=== PATIENT | female | born 1975 | race Caucasian/White ===

== ENCOUNTER 2022-04-03 00:27 | Day surgery (SDC) | payer OTHER, SELFPAY ==
[2022-02-21 13:03] VITALS: BMI 26.4
--- NOTE | 2022-04-03 06:40 | PM.HPGS ---
History of Present Illness History of Present Illness Consent: Risks, benefits, and alternatives have been discussed and questions answered. Patient agrees to proceed with procedure. Chief complaint: positive cologuard Narrative: Nedra Banks is a 46 year old female Referred for colon cancer screening. She performed a Cologuard test which was positive. Review of Systems Review of Systems: All systems reviewed & are unremarkable except as noted in HPI and below PMFSH Social History Social History Smoking status: Never smoker Alcohol intake: never Substance use: never Substance use type: does not use Living arrangements: with family Spiritual care concerns: No Meds Home Medications and Allergies Home Medications Medication Instructions Recorded Confirmed Type biotin 100 mg PO DAILY 02/21/22 03/17/22 History calcium carbonate 600 mg-vitamin 1 tablet PO BID 02/21/22 03/17/22 History D3 10 mcg (400 unit) tablet (Calcium 600 + D(3)) cyanocobalamin (vitamin B-12) 500 500 mcg sublingual BID 02/21/22 03/17/22 History mcg sublingual tablet levothyroxine 137 mcg tablet 137 mcg PO DAILY 02/21/22 03/17/22 History (Synthroid) magnesium 250 mg tablet 250 mg PO BID 02/21/22 03/17/22 History pediatric multivitamin 1 tablet PO BID 02/21/22 03/17/22 History Allergies Allergy/AdvReac Type Severity Reaction Status Date / Time No Known Allergies Allergy Mild Unverified 03/17/22 14:52 Exam Const: General: alert Orientation/consciousness: patient oriented x3 Resp: Auscultation: clear to auscultation bilaterally Cardio: Rhythm: regular rhythm GI: GI Palp: Yes Soft to palpation and No Tenderness to palpation present (GI) Neuro: General: patient oriented x3 Assessment and Plan Assessment and plan (1) Colon cancer screening: Code(s): Z12.11 - Encounter for screening for malignant neoplasm of colon Status: Acute Assessment and Plan: Colonoscopy with possible biopsy or polypectomy or cautery or injection of substances.
[2022-04-03 07:28] VITALS: BP 121/70; PULSE 78; RESP 18; TEMP 36.2; O2SAT 99; BMI 24.7
[2022-04-03] MEDS: LACTATED RINGERS 1,000 ML 150 ML IV CONT (07:39)
--- NOTE | 2022-04-03 08:12 | WPDANESEPPF ---
Anes - Initial Pre Proc Eval Procedure: Operation Date: 04/03/22 08:30 Proposed Procedures p Colonoscopy - Silvino Skinner MD Date/Time: 04/03/22 08:12 Surgeon: Silvino Skinner MD Pre Op Diagnosis: positive cologuard Patient Data Age: 46 Gender: F Height: 1.57 m Weight: 61.3 kg Last Vital Signs Temp 97.1 F L 04/03/22 07:28 Pulse 78 04/03/22 07:28 Resp 18 04/03/22 07:28 BP 121/70 04/03/22 07:28 Pulse Ox 99 04/03/22 07:28 O2 Del Method Room Air 04/03/22 07:28 Allergies Allergy/AdvReac Type Severity Reaction Status Date / Time No Known Allergies Allergy Mild Unverified 03/17/22 14:52 Home Medications Medication Instructions Recorded Confirmed Type biotin 100 mg PO DAILY 02/21/22 03/17/22 History calcium carbonate 600 mg-vitamin 1 tablet PO BID 02/21/22 03/17/22 History D3 10 mcg (400 unit) tablet (Calcium 600 + D(3)) cyanocobalamin (vitamin B-12) 500 500 mcg sublingual BID 02/21/22 03/17/22 History mcg sublingual tablet levothyroxine 137 mcg tablet 137 mcg PO DAILY 02/21/22 03/17/22 History (Synthroid) magnesium 250 mg tablet 250 mg PO BID 02/21/22 03/17/22 History pediatric multivitamin 1 tablet PO BID 02/21/22 03/17/22 History Patient hx anesthesia problems: none Family hx anesthesia problems: none Results Review: All pre-operative results and documents have been reviewed as part of the pre-operative evaluation. [facility] Social History Social History Smoking status: Never smoker Alcohol intake: never Substance use: never Substance use type: does not use Living arrangements: with family Spiritual care concerns: No Anes - Eval Final PreProcedure Day of Procedure 04/03/22 08:12 Patient weight: normal Heart: regular rate and rhythm Lungs: clear to auscultation Airway: Mallampati scale class II Neurological: alert and oriented Last oral intake: >/= 8 hours ASA classification: III Emergent: no Anesthetic plan: proceed Anesthesia type and monitoring: general GIVS and standard monitoring Results Review: All pre-operative results and documents have been reviewed as part of the pre-operative evaluation. Informed Consent: The patient's anesthetic plan and its attendant risks and benefits were discussed with the patient/family/POA. Questions were solicited and answers provided to the satisfaction of the patient/family/POA.
[2022-04-03 08:41] VITALS: BP 100/53; PULSE 65; RESP 21; O2SAT 98
[2022-04-03 08:51] VITALS: BP 114/66; PULSE 71; RESP 21; O2SAT 100
[2022-04-03 09:01] VITALS: BP 104/65; PULSE 69; RESP 22; O2SAT 100
== END 2022-04-03 09:06 | disposition home or self-care (01) ==
PROVIDERS: PCP Family Medicine; Visit Provider Internal Medicine Gastroenterology
PROC: 0DJD8ZZ Inspection of Lower Intestinal Tract, Via Natural or Artificial Opening Endoscopic (ICD-10-PCS; CPT 45378; principal; 2022-04-03 08:30)
DX: Z12.11 Encounter for screening for malignant neoplasm of colon (principal); K57.30 Diverticulosis of large intestine without perforation or abscess without bleeding; R19.5 Other fecal abnormalities
CPT/HCPCS: 45378; J2704; J7120

== ENCOUNTER 2023-02-04 08:58 | Outpatient (CLI) | payer OTHER, SELFPAY ==
--- NOTE | 2023-02-04 11:00 | NEURO_ITS ---
Impression: # Complains of lower neck pain and numbness of hand. # Mild Carpal Tunnel Syndrome bilaterally. # Normal needle/Needle/EMG including proximal muscles as well. # Clinical correlation recommended. Nerve Conduction Studies Anti Sensory Summary Table Stim Site NR Peak (ms) P-T Amp (?V) Site1 Site2 Delta-P (ms) Dist (cm) James (m/s) Left Median Anti Sensory (2-3nd Digit) Wrist 3.5 54.9 Wrist 2-3nd Digit 3.5 14.0 40 Wrist 3.6 65.3 Wrist 2-3nd Digit 3.5 14.0 40 Right Median Anti Sensory (2-3nd Digit) Wrist 3.7 54.9 Wrist 2-3nd Digit 3.7 14.0 38 Wrist 3.8 30.5 Wrist 2-3nd Digit 3.7 14.0 38 Left Radial Anti Sensory (Base 1st Digit) Wrist 2.0 69.8 Wrist Base 1st Digit 2.0 0.0 Right Radial Anti Sensory (Base 1st Digit) Wrist 2.3 31.9 Wrist Base 1st Digit 2.3 0.0 Left Ulnar Anti Sensory (5th Digit) Wrist 2.8 63.4 Wrist 5th Digit 2.8 14.0 50 Right Ulnar Anti Sensory (5th Digit) Wrist 2.7 57.6 Wrist 5th Digit 2.7 14.0 52 Motor Summary Table Stim Site NR Onset (ms) O-P Amp (mV) Site1 Site2 Delta-0 (ms) Dist (cm) James (m/s) Left Median Motor (Abd Poll Brev) Wrist 4.1 0.5 Elbow Wrist 4.7 28.0 60 Elbow 8.8 3.0 Right Median Motor (Abd Poll Brev) Wrist 4.5 1.6 Elbow Wrist 4.8 28.0 58 Elbow 9.3 4.2 Left Ulnar Motor (Abd Dig Minimi) Wrist 2.8 3.9 A Elbow Wrist 4.5 28.0 62 A Elbow 7.3 4.1 Right Ulnar Motor (Abd Dig Minimi) Wrist 2.9 9.0 A Elbow Wrist 4.8 28.0 58 A Elbow 7.7 8.0 F Wave Studies NR F-Lat (ms) L-R F-Lat (ms) Left Median (Mrkrs) (Abd Poll Brev) 29.24 0.53 Right Median (Mrkrs) (Abd Poll Brev) 28.71 0.53 Left Ulnar (Mrkrs) (Abd Dig Min) 27.97 0.68 Right Ulnar (Mrkrs) (Abd Dig Min) 27.29 0.68 EMG Side Muscle Nerve Root Ins Act Fibs Amp Dur Recrt Comment Right 1stDorInt Ulnar C8-T1 Nml Nml Nml Nml Nml Right Ext Indicis Radial (Post Int) C7-8 Nml Nml Nml Nml Nml Right Ext Digitorum Radial (Post Int) C7-8 Nml Nml Nml Nml Nml Right BrachioRad Radial C5-6 Nml Nml Nml Nml Nml Right PronatorTeres Median C6-7 Nml Nml Nml Nml Nml Right Abd Poll Brev Median C8-T1 Nml Nml Nml Nml Nml Left 1stDorInt Ulnar C8-T1 Nml Nml Nml Nml Nml Left Ext Indicis Radial (Post Int) C7-8 Nml Nml Nml Nml Nml Left Ext Digitorum Radial (Post Int) C7-8 Nml Nml Nml Nml Nml Left BrachioRad Radial C5-6 Nml Nml Nml Nml Nml Left PronatorTeres Median C6-7 Nml Nml Nml Nml Nml Left Abd Poll Brev Median C8-T1 Nml Nml Nml Nml Nml Right ABD Dig Min Ulnar C8-T1 Nml Nml Nml Nml Nml Right Biceps Musculocut C5-6 Nml Nml Nml Nml Nml Right Triceps Radial C6-7-8 Nml Nml Nml Nml Nml Right Deltoid Axillary C5-6 Nml Nml Nml Nml Nml Left ABD Dig Min Ulnar C8-T1 Nml Nml Nml Nml Nml Left Biceps Musculocut C5-6 Nml Nml Nml Nml Nml Left Triceps Radial C6-7-8 Nml Nml Nml Nml Nml Left Deltoid Axillary C5-6 Nml Nml Nml Nml Nml MTDD
== END 2023-02-04 08:59 | disposition home or self-care (01) ==
PROVIDERS: PCP Family Medicine; Visit Provider Family Medicine
DX: G56.03 Carpal tunnel syndrome, bilateral upper limbs (principal); M54.2 Cervicalgia
CPT/HCPCS: 95886; 95911

== ENCOUNTER → 2023-02-05 07:55 | Outpatient (CLI) | payer OTHER, SELFPAY ==
--- NOTE | ~2023-02-05 | XR_ITS ---
Cervical Spine: AP, lateral, open-mouth views Clinical History: Paresthesia Findings: The normal lordotic curve is maintained. The vertebral bodies and posterior elements appea r intact. The intervertebral disc spaces are well maintained. Pre-vertebral soft tissues are unremar kable. Impression: No significant abnormality is seen. Reviewed, dictated and finalized at [facility]. Impression: No significant abnormality is seen.
== END ==
PROVIDERS: PCP Family Medicine; Visit Provider Family Medicine
DX: M54.12 Radiculopathy, cervical region (principal)
CPT/HCPCS: 72040

== ENCOUNTER 2024-03-18 11:52 | Emergency (ER) | payer OTHER, SELFPAY ==
[2024-03-18 12:02] VITALS: BP 121/90; PULSE 68; RESP 16; TEMP 36.5; O2SAT 100
--- NOTE | 2024-03-18 12:06 | ED.ABDPAIN ---
HPI - Abdominal Pain General Chief Complaint: Abdominal Pain Stated Complaint: abdominal pain Source: patient and RN notes reviewed Mode of arrival: ambulatory Limitations: no limitations History of Present Illness HPI narrative: 48 y/o female presented for c/o abdominal pain, onset 9am. Pain is described as cramping in a wishbone pattern starting in epigastric area. Reports mild chest tightness. Also states she had dry heaves and felt clammy which is now resolved. Took 3 Tums without relief. LBM yesterday, normal. Denies fever, diarrhea, blood in stool, urinary symptoms, heart racing, dizziness. Last po intake was a protein shake this morning. Hx bariatric surgery. Endorses exposure to strep. Related Data Home Medications Medication Instructions Recorded Confirmed calcium 600 mg (as 1 tablet PO BID 02/21/22 03/18/24 carbonate)-vitamin D3 10 mcg (400 unit) tablet (Calcium 600 + D(3)) cyanocobalamin (vitamin B-12) 500 500 mcg sublingual BID 02/21/22 03/18/24 mcg sublingual tablet levothyroxine 137 mcg tablet 137 mcg PO DAILY 02/21/22 03/18/24 (Synthroid) Allergies Allergy/AdvReac Type Severity Reaction Status Date / Time No Known Allergies Allergy Mild Unverified 03/17/22 14:52 Review of Systems Review of Systems: CONSTITUTIONAL: Denies body aches, fever, chills ENT: Denies rhinorrhea, congestion CARDIOVASCULAR: Denies chest pain, palpitations, or edema. RESPIRATORY: Denies cough or dyspnea. GASTROINTESTINAL: Endorses abdominal pain, nausea, Denies vomiting, diarrhea, hematochezia, melena, hematemesis GENITOURINARY: Denies dysuria, hematuria, or CVA tenderness. MUSCULOSKELETAL: Denies back pain, joint pain, or myalgia. NEUROLOGIC: Denies headache All systems reviewed & are unremarkable except as noted in HPI and below PMFSH Surgical History Surgical History (Updated 03/18/24 @ 12:22 by Saumya Page APRN) H/O bariatric surgery Social History Social History Smoking status: Never smoker Alcohol intake: never Substance use: never Substance use type: does not use Living arrangements: with family Spiritual care concerns: No Comments At time of signature, I have reviewed and agree with nursing past medical, surgical, social and family history unless otherwise noted. Please see nursing chart for further information. There is no relevant family history pertinent to the presenting complaint Exam Narrative: GENERAL: mildly ill-appearing, appears in pain, no acute distress. EYES: EOMI. Conjunctivae normal. ENT: Mucous membranes pink and moist. CHEST: No respiratory distress. Clear to auscultation. HEART: Regular rate and rhythm. No murmur appreciated. Normal peripheral pulses. ABDOMEN: abd soft, nondistended, normal active bowel sounds. Tender abdomen, generalized. Guarding abdomen. No rebound tenderness or asymmetry EXTREMITIES: Normal range of motion. No edema. SKIN: Warm, dry, no rash. Capillary refill normal. Normal skin turgor. NEURO: No focal deficits. Alert and oriented x3. Course Course Emergency Course: Patient is aware of diagnosis, understands and agrees to treatment plan. Anticipatory guidance given. Patient agrees to follow-up as directed and is aware of reasons to seek care at the emergency department. Portions of this record may have been created with voice recognition software Level of Care: Express Care Visit Vital Signs Vital signs: Vital Signs Temperature 97.7 F 03/18/24 12:02 Pulse Rate 68 03/18/24 12:02 Respiratory Rate 16 03/18/24 12:02 Blood Pressure 121/90 03/18/24 12:02 Pulse Oximetry 100 03/18/24 12:02 Temperature 97.7 F 03/18/24 12:02 Pulse Rate 68 03/18/24 12:02 Respiratory Rate 16 03/18/24 12:02 Blood Pressure 121/90 03/18/24 12:02 Pulse Oximetry 100 03/18/24 12:02 Transfer Transfered to: [facility]: Other (private
== END 2024-03-18 12:23 | disposition short-term general hospital (02) ==
PROVIDERS: Emergency Provider Nurse Practitioner Family; PCP Physician Assistant
DX: R10.9 Unspecified abdominal pain (principal)
CPT/HCPCS: 99212; G0463

== ENCOUNTER 2024-03-18 12:41 | Observation (INO) | payer OTHER, MEDICAID, SELFPAY ==
[2024-03-18] VITALS (7 sets, daily range): BP systolic 135–154; BP diastolic 77–87; PULSE 52–73; RESP 12–16; TEMP 36.7; O2SAT 98–100; BMI 25.8
--- NOTE | ~2024-03-18 | CT_ITS ---
CLINICAL INDICATION: Epigastric pain with nausea and vomiting. COMPARISON: None. TECHNIQUE: An enhanced CT of the abdomen and pelvis was performed utilizing multislice spiral [employer] ue reconstructed at 5 mm slice thickness. Coronal and sagittal reconstructions were performed. This CT examination was performed utilizing dose reduction techniques. DLP: 301 mGy-cm FINDINGS/OBSERVATIONS: Visualized lower thorax:The bilateral lung bases are clear. The heart is of normal size, without pericardial effusion. Liver: The liver is not enlarged measuring 18 cm in longitudinal dimension. Trace periductal edema, a nonspecific finding. Gallbladder and biliary system: The gallbladder is minimally distended, without significant surroundi ng inflammatory change. However, the lack of intra-abdominal fat, precludes adequate evaluation. The common bile duct is dilated from 7.5 to 9.7 mm along its course. Prominence of the main pancreatic duct is also noted (to just over 3 mm), without jameel dilatation. Pancreas: Prominence of the main pancreatic duct is also noted (to just over 3 mm), without jameel dil atation. No discrete masses are identified. Spleen: The spleen is not enlarged and demonstrates homogeneous enhancement. Kidneys: Bilateral kidneys enhance symmetrically. Adrenal glands: Unremarkable Gastrointestinal tract: Postoperative change within the upper abdomen, the left of midline, consisten t with patients history of gastric bypass. Appendix:The air-filled appendix is of normal caliber (at least 3, image 109). Vasculature: Unremarkable Lymph nodes: No morphologically suspicious or pathologically enlarged lymph nodes within the retroper itoneum. Pelvic structures:Intrauterine device, in position. The uterus is anteverted and anteflexed and other kaur unremarkable. The bladder is decompressed, limiting its evaluation. The left ovary is asymmetrically larger than the right, a nonspecific finding. Multiple phleboliths are identified within the pelvis. Body wall and musculoskeletal: Small fat-containing umbilical hernia. No significant degenerative disease is identified within the lumbosacral or lower thoracic spines. No lytic or blastic lesions are identified within the visualized osseous structures. IMPRESSION: The gallbladder is minimally distended, without calcified stones. The common bile duct is also distended anywhere from 7 to 9 mm. Prominence of the main pancreatic duct is also present, without jameel dilatation. Given the lack of intra-abdominal fat, surrounding inflammatory change evaluation is limited. No discrete mass is appreciated. No obstructing stones are noted. Reviewed, dictated and finalized at location A. IMPRESSION: The gallbladder is minimally distended, without calcified stones. The common bile duct is also distended anywhere from 7 to 9 mm. Prominence of the main pancreatic duct is also present, without jameel dilatatio n. Given the lack of intra-abdominal fat, surrounding inflammatory change evaluati on is limited. No discrete mass is appreciated. No obstructing stones are noted.
--- NOTE | ~2024-03-18 | XR_ITS ---
EXAMINATION: XR chest 2V DATE: 03/18/2024 14:41 INDICATION: Upper abdominal pain radiating to the chest. TECHNIQUE: Frontal and lateral views of the chest were obtained. COMPARISON: Chest single view 10/28/2023 FINDINGS: There is no pneumonia, pleural effusion, or pneumothorax. The heart size is normal. There a re surgical clips in the neck. IMPRESSION: 1. No acute cardiopulmonary disease. Reviewed, dictated and finalized at location A.
--- NOTE | ~2024-03-18 | US_ITS ---
COMPLETE ABDOMINAL ULTRASOUND Ordering provider: Janay Birmingham MD History: . rule out cholecystitis . Comparison: None. FINDINGS: LIVER: Normal size and echotexture. No focal hepatic lesions or perihepatic fluid collections are mario ntified. Portal vein flow is normal. GALLBLADDER: Unremarkable. No evidence for stones, sludge, gallbladder wall thickening or pericholecy stic fluid collections. A positive sonographic Sims's sign was noted. BILIARY DUCTS: No evidence for intra or extrahepatic biliary dilation. Common bile duct measures 7.9 mm in diameter which is within normal limits. PANCREAS: Normal echotexture and size. IMPRESSION: Positive Sims's sign. Clinical correlation advised. Otherwise, Unremarkable right upper quadrant ul trasound of the abdomen. Reviewed, dictated and finalized at location A. IMPRESSION: Positive Sims's sign. Clinical correlation advised. Otherwise, Unremarkable r ight upper quadrant ultrasound of the abdomen.
--- NOTE | 2024-03-18 12:48 | ED.ABDPAIN ---
HPI - Abdominal Pain General Chief Complaint: Abdominal Pain Stated Complaint: abd pain Time Seen by Provider: 03/18/24 12:48 Source: patient History of Present Illness HPI narrative: 48 years old white female came to the ED by private car complaining of epigastric cramps started 9:00 a.m. which is 3-1/2 hours ago. Associated with nausea and dry heaving. Worse with sitting, nothing make it better. History of gastric bypass 2020. Hypothyroidism. She denies any fever or chills, constipation diarrhea or urinary symptoms, patient have IUD. Related Data Home Medications Medication Instructions Recorded Confirmed calcium 600 mg (as 1 tablet PO BID 02/21/22 03/18/24 carbonate)-vitamin D3 10 mcg (400 unit) tablet (Calcium 600 + D(3)) cyanocobalamin (vitamin B-12) 500 500 mcg sublingual BID 02/21/22 03/18/24 mcg sublingual tablet levothyroxine 137 mcg tablet 137 mcg PO DAILY 02/21/22 03/18/24 (Synthroid) Allergies Allergy/AdvReac Type Severity Reaction Status Date / Time No Known Allergies Allergy Mild Unverified 03/17/22 14:52 Review of Systems Review of Systems: All systems reviewed & are unremarkable except as noted in HPI and below PMFSH Surgical History Surgical History H/O bariatric surgery Social History Social History Smoking status: Never smoker Alcohol intake: never Substance use: never Substance use type: does not use Living arrangements: with family Spiritual care concerns: No Exam Narrative: General appearance: Well-developed, well-nourished Skin: Normal color Head: Normocephalic, nontraumatic Eyes: Clear conjunctiva ENT: Oropharynx normal, ears normal, nose normal Neck: Supple, nontender Chest and respiratory: Airway patent, no respiratory distress, no accessory muscle use Heart: Regular rate/rhythm Abdomen: Soft, Diffuse abdominal tenderness mainly epigastric area and left lower quadrant Vascular: Normal peripheral pulses, normal capillary refill. Musculoskeletal: Normal range of motion, nontender back Neurologic: Alert and oriented ?3, PERIODONTAL ASSISTANT is normal as tested, no gross motor deficit Course Vital Signs Vital signs: Vital Signs Temperature 36.7 C 03/18/24 12:44 Pulse Rate 73 03/18/24 12:44 Respiratory Rate 14 03/18/24 12:44 Blood Pressure 138/82 03/18/24 12:44 Pulse Oximetry 100 03/18/24 12:44 Temperature 36.7 C 03/18/24 18:07 Pulse Rate 58 L 03/18/24 18:07 Respiratory Rate 14 03/18/24 18:07 Blood Pressure 135/86 03/18/24 18:07 Pulse Oximetry 100 03/18/24 18:07 MDM - Abdominal Pain MDM Narrative Medical decision making narrative: patient came to the ED with epigastric and upper abdominal pain Vital signs are stable Physical examination showed diffuse tenderness all over the abdomen mainly epigastric. Differential diagnosis include pancreatitis, gastritis, B esophagitis, cholecystitis, constipation, diverticulitis, colitis Blood workup today showed WBC of 10.8, normal total bilirubin, normal liver enzymes, normal troponin, normal lipase, Urinalysis showed no evidence of urinary tract infection Chest x-ray showed no acute abnormalities CT abdomen and pelvis with IV contrast showed minimally distended gallbladder, distended common bile duct 7-9 mm Given the lack of intra-abdominal fat surrounding inflammatory change evaluation is limited. Patient still in pain, 03/17 on arrival, currently /10, 0.5 mg of Dilaudid IV ordered. GALLBLADDER ULTRASOUND SHOWED POSITIVE ULRICH SIGN OTHERWISE NO ACUTE ABNORMALITIES. PATIENT STILL IN PAIN,
--- NOTE | 2024-03-18 12:49 | ECG_ITS ---
Test Date: 2024-03-18 13:14:27 Measurements Intervals [place] Rate: 53 P: 12 NE: 147 QRS: 10 QRSD: 82 T: 16 QT: 419 QTc: 395 Interpretive Statements SINUS BRADYCARDIA No previous ECG available for comparison Electronically Signed On 03-19-2024 08:21:04 CDT by Cristiane Morrison M.D.
[2024-03-18] MEDS: ONDANSETRON INJ 4 MG/2 ML VIAL IV PUSH ×3 (13:38→21:22)
[2024-03-18] MEDS: MORPHINE SULFATE (*CRX) 4 MG/ML INJ IV PUSH (13:39)
[2024-03-18] MEDS: SODIUM CHLORIDE 0.9% IV 1,000 ML 999 ML IV CONT (13:41)
[2024-03-18 14:02] LABS: Basophils Percent Auto 0.4 % (0.2-1.2); Eosinophils Percent Auto 0.1 % (0-4.4); Hematocrit 40.8 % (37.0-47.0); Hemoglobin 13.9 g/dL (12.0-15.0); Immature Granulocyte Absolute 0.04 K/mm3 (0.00-0.031); Immature Granulocyte Percent A 0.4 % (0-0.5); Lymphocytes Absolute Auto 1.34 K/mm3 (0.9-3.2); Lymphocytes Percent Auto 12.4 % (18.3-44.2); Mean Corpuscular HGB Conc 34.1 g/dl (32-36); Mean Corpuscular Hemoglobin 30.7 pg (26-34); Mean Corpuscular Volume 90.1 fl (80-100); Mean Platelet Volume 9.2 fl (7.4-10.4); Monocytes Absolute Auto 0.5 K/mm3 (0.1-0.6); Monocytes Percent Auto 4.4 % (2.6-8.5); Neutrophils Absolute Auto 8.9 K/mm3 (1.3-6.7); Neutrophils Percent Auto 82.3 % (45.5-73.1); Platelet Count Result 279 k/mm3 (150-375); Red Blood Count 4.53 M/mm3 (4.2-5.4); Red Cell Distribution Width 12.2 % (11.5-14.5); White Blood Count 10.8 K/mm3 (4.5-10.0)
[2024-03-18 14:20] LABS: BEDSIDEPREGUCG Negative (Negative)
[2024-03-18 14:24] LABS: Add Urine Microscopic? NO; Appearance Urine Clear (Clear); Bilirubin Urine Negative (Negative); Blood Urine Negative (Negative); Color Urine Yellow (Yellow); Glucose Urine UA Negative (Negative); Ketones Urine Trace mg/dL (Negative); Leukocyte Esterase Ur Negative LEU/UL (Negative); Nitrate Urine Negative (Negative); Protein Urine Negative (Negative); Specific Grav Ur 1.023 (1.001-1.035); Urobilinogen Urine 0.2 mg/dL (<2.0)
[2024-03-18 14:31] LABS: Estimated Glomerular Filt Rate > 60
[2024-03-18 14:58] LABS: Alanine Aminotransferase 38 U/L (6-35); Albumin Level 4.1 g/dL (3.5-5.1); Alkaline Phosphatase 68 U/L (38-126); Aspartate Amino Transferase 40 U/L (14-36); Bilirubin,Total 0.5 mg/dL (0.2-1.3); Blood Urea Nitrogen 18 mg/dL (7-17); Calcium 8.9 mg/dL (8.4-10.2); Carbon Dioxide 30 mmol/L (22-30); Estimated Glomerular Filt Rate > 60; Glucose 99 mg/dL (65-110); Lipase 268 U/L (23-300)
[2024-03-18 15:00] LABS: Troponin I < 0.012 ng/mL (0.000-0.034)
[2024-03-18 15:02] LABS: Anion Gap 7 mmol/L (4-12); Chloride 100 mmol/L (98-107); Potassium 3.9 mmol/L (3.4-5.0); Sodium 137 mmol/L (137-145)
[2024-03-18] MEDS: HYDROmorphone HCL INJ (*CRX) 1 MG/ML SYR 0.5 MG IV PUSH ×3 (15:38→19:33)
[2024-03-18] MEDS: PIPERACILLN/TAZ 3.375GM/NS50ML 3.375 GM/50 ML BAG IVPB (19:34)
[2024-03-18] MEDS: LACTATED RINGERS 1,000 ML 150 ML IV CONT (20:41)
[2024-03-18] MEDS: HYDROmorphone HCL INJ (*CRX) 1 MG/ML SYR IV PUSH (21:22)
[2024-03-19] MEDS: PIPERACILLN/TAZ 3.375GM/NS50ML 3.375 GM/50 ML BAG IVPB ×5 (00:37→23:36)
[2024-03-19] MEDS: HYDROmorphone HCL INJ (*CRX) 1 MG/ML SYR IV PUSH ×4 (01:41→20:30)
[2024-03-19] MEDS: ONDANSETRON INJ 4 MG/2 ML VIAL IV PUSH ×2 (01:44→09:04)
[2024-03-19] MEDS: LACTATED RINGERS 1,000 ML 150 ML IV CONT ×2 (04:05→19:09)
[2024-03-19 06:00] VITALS: BP 144/84; PULSE 54; RESP 18; TEMP 37.7; O2SAT 98
[2024-03-19 08:57] VITALS: O2SAT 98
--- NOTE | 2024-03-19 12:37 | PM.IMHP ---
H&P: HPI History of Present Illness Date/Time: 03/19/24 12:37 Chief Complaint: upper abdominal pain Narrative: The patient is a 48-year-old female presenting to the emergency department complaining severe epigastric, right upper quadrant abdominal pain. The patient reports the pain started acutely yesterday in the morning and progressively worsened throughout the day. The patient reports associated anorexia, nausea, vomiting, bloating. The patient denies previous similar episodes. Workup in the emergency department, including imaging, is suggestive of acute cholecystitis. Review of Systems Review of Systems: All systems reviewed & are unremarkable except as noted in HPI and below PMFSH Surgical History Surgical History H/O bariatric surgery Social History Social History Smoking status: Never smoker Alcohol intake: never Substance use: never Substance use type: does not use Living arrangements: with family Spiritual care concerns: No Comments PMH - hypothyroid PSH - lap RNYGB FH - no biliary dz Meds Home Medications and Allergies Home Medications Medication Instructions Recorded Confirmed Type calcium 600 mg (as 1 tablet PO BID 02/21/22 03/18/24 History carbonate)-vitamin D3 10 mcg (400 unit) tablet (Calcium 600 + D(3)) cyanocobalamin (vitamin B-12) 500 500 mcg sublingual DAILY 02/21/22 03/18/24 History mcg sublingual tablet levothyroxine 137 mcg tablet 137 mcg PO DAILY 02/21/22 03/18/24 History (Synthroid) Allergies Allergy/AdvReac Type Severity Reaction Status Date / Time No Known Allergies Allergy Mild Unverified 03/17/22 14:52 Vital Signs Vital Signs - 24 hr 03/18/24 12:44 03/18/24 13:43 03/18/24 16:30 Temperature 36.7 C Pulse Rate 73 52 L 70 Respiratory Rate 14 15 16 Blood Pressure 138/82 136/83 146/86 H Pulse Oximetry 100 100 99 Oxygen Delivery Fraction of Inspired Oxygen 03/18/24 18:07 03/18/24 18:40 03/18/24 19:28 Temperature 36.7 C Pulse Rate 58 L 56 L 54 L Respiratory Rate 14 12 15 Blood Pressure 135/86 140/83 144/87 H Pulse Oximetry 100 98 99 Oxygen Delivery Fraction of Inspired Oxygen 03/18/24 20:17 03/18/24 20:34 03/19/24 06:00 Temperature 36.7 C 37.7 C H Pulse Rate 56 L 54 L Respiratory Rate 16 18 Blood Pressure 154/77 H 144/84 H Pulse Oximetry 98 98 Oxygen Delivery Room Air Fraction of Inspired Oxygen 03/19/24 08:57 Temperature Pulse Rate Respiratory Rate Blood Pressure Pulse Oximetry 98 Oxygen Delivery Room Air Fraction of Inspired Oxygen 21 Exam Const: General: cooperative, comfortable and no acute distress HENMT: Head: normal to inspection, normocephalic and atraumatic Eyes: General: appearance normal, both eyes and all related structures Neck: Neck: normal visual inspection and no lymphadenopathy Resp: Auscultation: clear to auscultation bilaterally Cardio: Rate: regular rate Rhythm: regular rhythm GI: Inspection: normal to inspection and distended GI Palp: Yes abdominal tenderness, Yes Soft to palpation, Yes Tenderness to palpation present (GI), No Guarding due to palpation present (GI) and No Rigid due to palpation Skin: General skin exam: normal color and no rashes or lesions noted Neuro: General: patient oriented x3 and CN's II-XI intact bilaterally Extrem: General: normal to inspection and full ROM H&P: Results Labs Labs: Short CBC 03/18/24 Range/Units 13:46 WBC 10.8 H (4.5-10.0) K/mm3 Hgb 13.9 (12.0-15.0) g/dL Hct 40.8 (37.0-47.0) % Plt Count 279 (150-375) k/mm3 BMP 03/18/24 03/18/24 13:46 14:29 Sodium 137 Potassium 3.9 Chloride 100 Carbon Dioxide 30 BUN 18 H Creatinine 0.70 0.80 Glucose 99 Calcium 8.9 Cardiac Enzymes 03/18/24 Range/Units 13:46 Troponin I < 0.012 (0.000-0.034) ng/mL
[2024-03-19] MEDS: LEVOTHYROXINE SODIUM 112 MCG TABLET PO (13:36)
[2024-03-19] MEDS: LEVOTHYROXINE SODIUM 25 MCG TABLET PO (13:36)
[2024-03-19] MEDS: KETOROLAC 30 MG/ML VIAL (*BKC) IV PUSH ×3 (13:41→23:36)
[2024-03-19 14:00] VITALS: BP 122/65; PULSE 55; RESP 18; TEMP 36.8; O2SAT 98
--- NOTE | 2024-03-19 16:19 | PC.NURSE ---
On 03/19/24, the CAN CRIMPER, Marlen, provided care and completed [facility] documentation on this patient. I have reviewed the CAN CRIMPER's documentation and agree with the findings.
[2024-03-19 20:47] VITALS: BP 139/85; PULSE 57; RESP 19; TEMP 36.6; O2SAT 97
[2024-03-20] VITALS (15 sets, daily range): BP systolic 115–178; BP diastolic 65–98; PULSE 56–92; RESP 16–21; TEMP 36.4–37.5; O2SAT 97–100
[2024-03-20] MEDS: LACTATED RINGERS 1,000 ML 150 ML IV CONT ×2 (03:07→20:35)
[2024-03-20] MEDS: PIPERACILLN/TAZ 3.375GM/NS50ML 3.375 GM/50 ML BAG IVPB (05:06)
[2024-03-20] MEDS: KETOROLAC 30 MG/ML VIAL (*BKC) IV PUSH (05:06)
--- NOTE | 2024-03-20 07:27 | P.PNAN_ITS ---
Anes - Initial Pre Proc Eval Procedure: Operation Date: 03/20/24 07:30 Proposed Procedures p Laparoscopic Cholecystectomy - Lillie Khan MD Date/Time: 03/20/24 07:27 Surgeon: Lillie Khan MD Pre Op Diagnosis: Abdominal Pain, Questionable Cholecystitis Patient Data Age: 48 Gender: F Height: 1.57 m Weight: 64 kg Last Vital Signs Temp 36.4 C 03/20/24 06:00 Pulse 56 L 03/20/24 06:00 Resp 19 03/20/24 06:00 BP 128/75 03/20/24 06:00 Pulse Ox 98 03/20/24 06:00 O2 Del Method Room Air 03/19/24 20:00 FiO2 21 03/19/24 08:57 Allergies Allergy/AdvReac Type Severity Reaction Status Date / Time No Known Allergies Allergy Mild Unverified 03/17/22 14:52 Home Medications Medication Instructions Recorded Confirmed Type calcium 600 mg (as 1 tablet PO BID 02/21/22 03/18/24 History carbonate)-vitamin D3 10 mcg (400 unit) tablet (Calcium 600 + D(3)) cyanocobalamin (vitamin B-12) 500 500 mcg sublingual DAILY 02/21/22 03/18/24 History mcg sublingual tablet levothyroxine 137 mcg tablet 137 mcg PO DAILY 02/21/22 03/18/24 History (Synthroid) Patient hx anesthesia problems: post op nausea/vomiting Family hx anesthesia problems: post op nausea/vomiting Results Review: All pre-operative results and documents have been reviewed as part of the pre- operative evaluation. [facility] Surgical History Surgical History H/O bariatric surgery Social History Social History Smoking status: Never smoker Alcohol intake: never Substance use: never Substance use type: does not use Living arrangements: with family Spiritual care concerns: No Anes - Eval Final PreProcedure Day of Procedure 03/20/24 07:27 Patient weight: normal Heart: regular rate and rhythm Lungs: clear to auscultation Airway: Mallampati scale class II Neurological: alert and oriented Last oral intake: >/= 8 hours ASA classification: II Emergent: no Anesthetic plan: proceed Anesthesia type and monitoring: general ETT and standard monitoring Results Review: All pre-operative results and documents have been reviewed as part of the pre- operative evaluation. Informed Consent: The patient's anesthetic plan and its attendant risks and benefits were discussed with the patient/family/POA. Questions were solicited and answers pro vided to the satisfaction of the patient/family/POA.
--- NOTE | 2024-03-20 07:27 | WPDHPUPDATE1 ---
History and Physical Update Update Date/Time: 03/20/24 07:27 History and Physical has been reviewed, including an updated exam of the patient. There are NO changes in the patient's condition. Risks, benefits, and alternatives have been discussed and questions answered. Patient agrees to proceed with procedure.
[2024-03-20] MEDS: BUPIVACAINE/EPINEPHRINE 0.5% 50 ML VIAL 30 ML INFILTRATE (07:47)
[2024-03-20] MEDS: LACTATED RINGERS 1,000 ML 30 ML IV CONT ×2 (07:50→09:04)
--- NOTE | 2024-03-20 08:26 | W.PM.PROC2 ---
Procedure Note - Detailed Date of Procedure 03/20/24 Pre-op Diagnosis Acute cholecystitis Post-op Diagnosis Same Procedure Performed Laparoscopic cholecystectomy Surgeon Lillie Khan MD Anesthesia General Indications 48-year-old female presenting to the emergency department complaining of severe epigastric, right upper quadrant abdominal pain. Workup, including imaging, significant for acute cholecystitis Findings Acute cholecystitis Description of Procedure The patient was taken to the operating room placed in the supine position. After adequate induction of general anesthesia, the patient was prepped and draped in normal sterile fashion. A time-out was then performed to verify the patient's identity as well as the procedure being performed. I then made a 5 mm incision in the infraumbilical region. Through this, a Veress needle was placed into the peritoneal cavity and CO2 gas was then insufflated. After adequate pneumoperitoneum was achieved, the Veress needle was removed and a 5 mm optiview trocar was placed through this incision under direct visualization. I then placed the laparoscope through this trocar site and under direct visualization placed a further 12 mm subxiphoid port as well as 2 additional 5 mm ports in the right upper abdomen. The gallbladder was then identified and was noted to be moderately inflamed and distended. I was able to place a grasper at the dome of the gallbladder and this was retracted anterior and cephalad up over the liver. A 2nd retractor was then placed at the infundibulum and retracted laterally, this allowed visualization of the triangle of Calot. I then was able to visualize the cystic duct in its entirety from its proximal insertion into the gallbladder, to its distal junction with the common hepatic/common bile duct junction. At this point, I carefully skeletonized the proximal cystic duct with the [place] dissector. I then clipped and transected the proximal cystic duct. Next I visualized the cystic artery. Again the artery was skeletonized, clipped, and transected. I then used the Bovie cautery to take down the peritoneal attachments of the gallbladder off the liver bed. This was somewhat difficult given the amount of inflammation in the posterior space. Once the gallbladder specimen was completely detached, an endo-pouch was placed through the 12 mm port site. I then placed the gallbladder specimen into the Endo pouch and removed the endo-pouch from the 12 mm port site. The specimen will now be sent to pathology for further review. I then copiously irrigated the right upper quadrant. Some mild oozing was noted in the liver bed and this was controlled with the bovie cautery. Hemostasis was noted in the liver bed, the clips were noted to be in good position on both the cystic duct stump and the cystic artery stump. No other pathology was noted in the right upper quadrant. I then moved the laparoscope to the subxiphoid port. There was some blood noted in the right lower quadrant and pelvis. This was suctioned away and no obvious bleeding source was noted. After continued observation, no active bleeding was noted. No iatrogenic injury or other pathology was noted in the lower abdomen. I then closed the 12 mm trocar site under direct visualization using the Riccardo cone and 0 Vicryl suture. At this point, the abdomen was desufflated and all ports removed. All port sites were then closed with 4.O Monocryl subcuticular sutures. Dermabond was placed on each incision. The patient tolerated the procedure well, was extubated in the operating room postoperative and will be transferred to the recovery room in stable condition Estimated Blood Loss 50 Urine Output 600 Drains No Packing No Pathology Yes Complications No immediate complications Condition Stable Disposition PACU [facility] Billing Surgery - Charge Forward: Surgery Billing
[2024-03-20] MEDS: ONDANSETRON INJ 4 MG/2 ML VIAL IV PUSH ×3 (09:05→23:00)
[2024-03-20] MEDS: diphenhydrAMINE HCl INJ 50 MG/ML VIAL 25 MG IV PUSH (09:18)
[2024-03-20] MEDS: PROMETHAZINE HCL 25 MG/ML AMPUL 12.5 MG IV PUSH ×2 (09:38→20:36)
--- NOTE | 2024-03-20 09:46 | SUR.PHASEI ---
[facility] FAX'D AT [phone]. AWAITING CALL FROM FLOOR.
--- NOTE | 2024-03-20 09:49 | SUR.PHASEI ---
[facility] [place] CRNA NOTIFIED RE: INCREASE IN BP TO 163/92. PATIENT NAUSEA SLIGHTLY BETTER ; PAIN TOLERABLE PER PATIENT.
--- NOTE | 2024-03-20 10:21 | PC.NURSE ---
RN assuming care of pt since pt returned from surgery. at 1020
[2024-03-20] MEDS: CALCIUM/VITAMIN D 500 MG/5 MCG (200 I.U.) TABLET PO ×2 (11:14→17:21)
[2024-03-21 01:01] VITALS: BP 148/80; PULSE 50; RESP 16; TEMP 37.1; O2SAT 98
[2024-03-21 04:55] VITALS: BP 147/79; PULSE 54; RESP 12; TEMP 36.6; O2SAT 98
[2024-03-21] MEDS: LEVOTHYROXINE SODIUM 112 MCG TABLET PO (05:31)
[2024-03-21] MEDS: LEVOTHYROXINE SODIUM 25 MCG TABLET PO (05:31)
[2024-03-21 09:16] VITALS: BP 133/81; PULSE 65; RESP 22; TEMP 36.7; O2SAT 98
[2024-03-21] MEDS: ONDANSETRON INJ 4 MG/2 ML VIAL IV PUSH (10:01)
--- NOTE | 2024-03-21 11:46 | PM.DS ---
DS: Admitting Diagnosis Discharge Date 03/21/2024 Admitting Diagnosis Acute cholecystitis DS: Discharge Diagnosis Discharge Diagnosis (1) Acute cholecystitis: Code(s): K81.0 - Acute cholecystitis Status: Acute DS: Summary Hospital Course Reason for hospitalization: This is a 48-year-old woman who presented to the ED on 03/18/2024 with complaints of epigastric and right upper quadrant abdominal pain. Workup in the emergency department, including imaging, is suggestive of acute cholecystitis. She was admitted in the setting for surgical evaluation and treatment. Hospital Course: The patient was treated with IV antibiotics and scheduled for a laparoscopic cholecystectomy. She underwent a laparoscopic cholecystectomy on 03/20/[address] Khan. Surgery was straightforward. Her diet was advanced postoperatively. She is tolerating activity. She has some mild nausea, but has been able to tolerate oral intake. She is tolerating her diet this morning. She reports having nausea after previous surgeries, but did well with Zofran postoperatively. She reports mild incisional soreness this morning, but this is controlled without any narcotic medication. No other complaints at this time. Discussed the case with Dr. Khan. Patient is stable for discharge today. Status at Discharge Functional status at discharge: independent ambulation Overall status at discharge: patient is progressing back to baseline Time Spent with Patient Time attestation: Total time spent providing and/or coordinating discharge services: Exam Const: General: comfortable and no acute distress Resp: Effort & Inspection: normal respiratory effort Auscultation: clear to auscultation bilaterally Cardio: Rate: regular rate Rhythm: regular rhythm GI: Inspection: non-distended and incision (incisions dry and intact) GI Palp: Yes Soft to palpation, Yes Tenderness to palpation present (GI) (incisional) and No Guarding due to palpation present (GI) Auscultation: normal bowel sounds Neuro: General: moves all extremities and no focal motor deficits Psych: Mental Status: mental status grossly normal Insight: Good insight present (Psych) DS: Data Data Completed and Pending Pending studies at discharge: Pending at discharge 03/20/24 07:56 Surgical [PTH] Routine Procedures/Treatments: Procedures Operation Date: 03/20/24 07:30 Actual Procedure Side Surgeon p Laparoscopic Cholecystectomy Not Applicable Lillie Khan MD Imaging Radiologist's impression: ITS Impressions Abdomen/Pelvis CT 03/18/24 14:40 IMPRESSION: The gallbladder is minimally distended, without calcified stones. The common bile duct is also distended anywhere from 7 to 9 mm. Prominence of the main pancreatic duct is also present, without jameel dilatation. Given the lack of intra-abdominal fat, surrounding inflammatory change evaluation is limited. No discrete mass is appreciated. No obstructing stones are noted. Chest X-Ray 03/18/24 14:52 IMPRESSION: 1. No acute cardiopulmonary disease. Abdomen Ultrasound 03/18/24 17:02 IMPRESSION: Positive Sims's sign. Clinical correlation advised. Otherwise, Unremarkable right upper quadrant ultrasound of the abdomen. Discharge Plan Discharge Attending physician on discharge: Lillie Khan Discharging Clinician: Nadine Fleming Anticipated Discharge Date/Time: 03/21/24 11:47 Patient Disposition: Home, Self-Care Activity: may shower and as tolerated Diet: as tolerated Wound Care Instructions: incision open to air Discharge Instructions: DISCHARGE INSTRUCTION SHEET FOR HERNIA, GALLBLADDER AND APPENDIX SURGERIES DR. KHAN 1. May shower in 24 hours, no soaking in bath x 2weeks. 2. Call office for: Wound increasingly painful or bleeding Vomiting Fever of greater than 101 degrees 3. If no bowel movement for three days, take 1 oz. (30 ml) Milk of Magnesia or MiraLax
== END 2024-03-21 13:10 | disposition home or self-care (01) ==
LOC: ANHED 18:48 → ANH3MEDSUR 19:49
PROVIDERS: Admitting Provider Surgery; Emergency Provider Emergency Medicine; PCP Physician Assistant; Visit Provider Surgery
PROC: 0FT44ZZ Resection of Gallbladder, Percutaneous Endoscopic Approach (ICD-10-PCS; CPT 47562; principal; 2024-03-20 07:30)
DX: K81.1 Chronic cholecystitis (principal); E03.9 Hypothyroidism, unspecified; Z98.84 Bariatric surgery status
CPT/HCPCS: 47562; 36415; 71046; 74177; 76705; 80053; 81003; 81025; 83690; 84484; 85025; 88304; 93005; 96365; 96374; 96375; 96376; 99285; A9270; G0378; J0330; J1100; J1171; J1200; J1885; J2270; J2405; J2543; J2550; J2704; J3010; J7030; J7120; Q9967

== ENCOUNTER 2024-07-14 15:53 | Outpatient (CLI) | payer OTHER, MEDICAID, SELFPAY ==
--- NOTE | ~2024-07-14 | XR_ITS ---
EXAMINATION: XR hand RT min 3V DATE: 07/14/2024 16:12 INDICATION: Pain at the right third digit and metacarpal. TECHNIQUE: Posteroanterior, oblique and lateral views of the right hand were obtained. COMPARISON: None. FINDINGS: Alignment is normal. No fracture. Polyarticular osteoarthritis, moderate severity at the first interp halangeal and second and fifth distal interphalangeal joints and at the fourth and fifth proximal int erphalangeal joints and mild at the remaining interphalangeal joints, the metacarpophalangeal, first carpometacarpal and triscaphe joints. No erosions to suggest inflammatory arthritis. Soft tissues are unremarkable. IMPRESSION: 1. 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 Reviewed, dictated and finalized at location A. RVATIONS AND TICKETING AGENT IMPRESSION: 1. 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
--- OUTSIDE RECORDS SUMMARY | 2024-07-14 15:56 | XMS_ITS | Encounter Summary ---
Author Organization [facility] Address [address] [place] [address] Phone Care Team Providers Care Director Adult Name Role Phone Malia Tejeda MD Primary Care Provider [phone]- [phone] Cathy Schuster MD Unavailable Jak Bradford Primary Care Provider + Encounter Details Date Type Department Care Team (Late st Contact Info) Description 11/21/2021 Telephone [facility] Minimally Invasive Surgery [address] [place] [address] Medical Office Building [address] [place] [address] Nadira Gray, B.A. Social History Tobacco Use Types Packs/Day Years Used Date Smoking Tobacco: Former Cigarettes 0.5 2 1 0 - 1991 Smokeless Tobacco: Never Alcohol Use Standard Drinks/Week Comments Yes 0 (1 standard drink = 0.6 oz pur e alcohol) AUDIT-C Answer Date Recorded Q1: How often do you have a drink containing alc ohol? Never 05/23/2021 Average Number of Drinks Not on file 021 Q3: How often do you have si x or more drinks on one occasion? 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 Gender Identity Not on file Sexual Orientation Straight 09/01/2018 11 :03 AM CDT documented as of this encounter Plan of Treatment Not on file documented as of this encounter Visit Diagnoses Not on filedocumented in this encounter Care Teams Director Adult Relationship Specialty Start Date End Date Malia Tejeda MD [address] [place] [address] [place] [address] PCP - General 12/12/16 06/29/24 Jak Bradford PA [address] [place] [address] [place] [address] PCP - General Internal Medicine 06/30/24 Cathy Schuster MD [address] [place] [address] [place] [address] Radiation Oncologist Radiation Oncology 02/17/18 documented as of this encounter
--- OUTSIDE RECORDS SUMMARY | 2024-07-14 15:57 | XMS_ITS | Data Portability ---
Author Organization [facility] [employer], Main Office Address [address] [place] [address] Assessment No assessment recorded. Plan of Treatment Reminders Order Date Submit Date Provider Last Modified By Organization Details Last Modified Time Details Appointments Physical/ Annual Wellness 30 2024 02:45P M BAKARI Souza Not available Not available Not available Lab urinalysi s, dipstick 2023 024 [email or web address] 00 [facility] [address], [place], [address], 10/15/2023 16:47:47 culture, urine + sensitivi ty 2023 024 JOSSIE Not available 10/16/2023 09:32:57 Referral None recorded. Procedures None recorded. Surgeries None recorded. Imaging None recorded. Medication Orders triamcino lone acetonide 0.1 % topical cream 2022 023 [place] [facility] #[id number], [address], [place], [id number], 12/15/2022 12:21:04 cyclobenz aprine 10 mg tablet 2022 023 [id number] [address], [place], [id number], 02/05/2023 16:21:04 sulfameth oxazole 800 mg-trimet hoprim 160 mg tablet 2023 024 [id number], [address], [place], [id number], 10/15/2023 11:24:32 Patient TargetsNo targets recorded. Patient InstructionsNo instructions recorded. Reason for Referral None Reported. Results Created Date Observation Date Name Description Value Unit Range Abnormal Flag Note LastModifiedBy Organization Detail LastModifiedTime 02/15/20 21 02/16/2021 H PYLOR I BREAT H TEST H pylori breath test negati ve negati ve Perfo rmed at: CB - [facility] Dub n [address] [facility], [place] [address] 3318 Lab Direc tor: Eliot santos PhD, Phone : [phone] Not Available [facility] (Lab) [address] [place], [address], 02/16/2021 17:08:46 12/28/19 22 12/27/2021 COLOG UARD cologuard result reportable positi ve negati ve abnormal POSIT JAYNE TEST RESUL T. A posit jayne Colog uard resul t shoul d be follo wed with a colon oscop y or visua l exami natio n of the colon . The eris l value (refe rence range ) for this assay is negat jayne. TEST DESCR IPTIO N: [place] site algor [facility] c alexander sis of stool DNA-b iogeorgette gomes with hemog lobin immun oassa y. Quant itati ve value s of indiv idual bioma rkers are not repor table and are not assoc iated with indiv idual bioma rker resul t refer ence range s. Colog uard is inten ded for color ectal cance r scree betzy of adult s of eithe r sex, 45 years or older , who are at [facility] for color ectal cance r (CRC) . Colog uard has been appro jared for use by the U.[place]. FDA. The perfo rmanc e of Colog uard was estab lishe d in a cross secti onal study of [facility] adult s aged 50-84 . Colog uard perfo rmanc e in patie nts ages 45 to 49 years was estim ated by sub-g roup alexander sis of near- age group s. Colon oscop ies perfo rmed for a posit jayne resul t may find as the most clini nallely signi fican t lesio n: color ectal cance r [4.0% ], advan mehnaz adeno ma (incl uding sessi le kenzie brandon polyp s great er than or equal to 1cm diame ter) [20%] or non- advan mehnaz adeno ma [31%] ; or no color ectal neopl hiram [45%] . These estim ates are deriv ed from a prosp ectiv e cross -sect ional scree btezy study of 0 indiv idual s at [facility] risk for color ectal cance r who were scree mary with both Colog uard and colon oscop y. (Kathleen Alonso et al, N Engl J Med 2014; 370(1 4):12 86-12 97.) Colog uard may produ ce a false negat jayne or false posit jayne resul t (no color ectal cance r or preca ncero us polyp prese nt at colon oscop y follo w up). A negat jayne Colog uard test resul t does not guara ntee the absen ce of CRC or advan mehnaz adeno ma (pre- cance r). The curre nt Colog uard scree betzy inter clary is every 3 years . (Amer ican Cance r Socie ty and U.S. Multi -Soci ety Task Force ). Colog uard perfo rmanc e data in a 0 patie nt pivot al study using colon oscop y as the refer ence metho d can be acces sed at the follo wing locat ion: www.e xactl abs.c om/re anant . Addit ional descr iptio n of the Colog uard test proce ss, warni ngs and preca ution s can be found at www.c darrell evans.c om. Not Available [facility] (Cologuard Orders Only) [address], [place], [address], 01/02/2022 01:31:22 10/15/19 24 10/15/2023 urina lysis , dipst ick Leukocytes (reference range: negative victor hugo/ l) Trace Not Available [address], [place], [address], 10/15/2023 10:30:46 10/15/19 24 10/15/2023 urina lysis , dipst ick Nitrite (reference rage: negative mg/dl) negati ve Not Available [address], [place], [address], 10/15/2023 10:30:46 10/15/19 24 10/15/2023 urina lysis , dipst ick Urobilinogen (reference range: 0.2-1 mg/dl) 0.2 Not Available [address], [place], [address], 10/15/2023 10:30:46 10/15/19 24 10/15/2023 urina lysis , dipst ick Protein (reference range: negative mg/dl) Negati ve Not Available [address], [place], [address], 10/15/2023 10:30:46 10/15/19 24 10/15/2023 urina lysis , dipst ick pH (reference range: 5-7) 6.5 Not Available [address], [place], [address], 10/15/2023 10:30:46 10/15/19 24 10/15/2023 urina lysis , dipst ick Blood (reference range: negative Rodney/ l) Non-He molyze d: Trace Not Available [address], [place], [address], 10/15/2023 10:30:46 10/15/19 24 10/15/2023 urina lysis , dipst ick Specific [place] (reference range: 1.005-1.030) 1.015 Not Available [address], [place], [address], 10/15/2023 10:30:46 10/15/19 24 10/15/2023 urina lysis , dipst ick Ketone (reference range: negative mg/dl) Negati ve Not Available [address], [place], [address], 10/15/2023 10:30:46 10/15/19 24 10/15/2023 urina lysis , dipst ick Bilirubin (reference range: negative mg/dl) Negati ve Not Available [address], [place], [address], 10/15/2023 10:30:46 10/15/19 24 10/15/2023 urina lysis , dipst ick Glucose (reference range: negative mg/dl) Negati ve Not Available [address], [place], [address], 10/15/2023 10:30:46 10/15/19 24 10/15/2023 urina lysis , dipst ick Appearance Clear Not Available [address], [place], [address], 10/15/2023 10:30:46 10/15/19 24 10/15/2023 urina lysis , dipst ick Color Yellow Not Available [address], [place], [address], 10/15/2023 10:30:46 05/21/20 22 05/13/2022 MAMMO , scree betzy, bilat eral No observ ation record ed. [id number] [facility], [place], [address], 08/06/2022 01:03:01 07/14/19 23 06/23/2022 PET-C T, skull base to mid-t high scan No observ ation record ed. [id number] Not Available 08/06/2022 01:03:01 02/05/20 23 02/04/2023 nerve condu ction study /EMG (PROC ) No observ ation record ed. [address] [facility], [place], [address], 02/04/2023 17:05:13 02/06/20 23 02/05/2023 XR, cervi ravi spine , 2 or 3 view No observ ation record ed. [address] [facility], [place], [address], 02/05/2023 14:09:28 Result Notes None recorded. Problems Name Problem SNOMED Code Status Onset Date Resolution Date Notes Provider Name and Address Organization Details Recorded Time Neoplasm of thyroid gland 242331998 Active Not Available [facility] 3 00:54:56 Vitamin D deficiency 90223795 Active Not Available [facility] 3 00:54:56 Malignant tumor of thyroid gland 602915345 Active 2019 Not Available [facility] 3 00:54:56 Goiter 2370692 Active Not Available [facility] 3 00:54:56 Sleep disorder 30977865 Active Not Available [facility] 3 00:54:56 Tinea cruris 026286489 Active Not Available [facility] 3 00:54:56 Hypothyroi dism 81453281 Active Not Available [facility] 3 00:54:56 Obesity 591369317 Active 2016 Not Available [facility] 3 00:54:56 Upper respirator y infection 75982188 Active Not Available [facility] 3 00:54:56 Hyperlipid emia 36669696 Active Not Available [facility] 3 00:54:56 Obstructiv e sleep apnea syndrome 07565928 Active 2016 Not Available [facility] 3 00:54:56 Eruption 457407533 Active 2022 Malia Tejeda MD [address], [address], [place], [address] , [facility] 3 12:06:01 Post-surgi ravi malabsorpt ion 146595400 Active 2022 Amanda Arana RN null, [facility] 3 15:54:15 Paresthesi a 87396399 Active 2022 Amanda Arana RN null, [facility] 3 15:56:22 Cervical radiculopa thy 63790636 Active 2022 right BAKARI Souza [address], [address], [place], [address] , [facility] [employer] [facility] 4 09:47:17 Thoracic back pain 607316226 Active 2022 Malia Tejeda MD [address], [address], [place], [address] , [facility] 3 16:18:10 Carpal tunnel syndrome 06636345 Active 2022 Malia Tejeda MD [address], [address], [place], [address] , [facility] 3 16:20:16 Neuropathy 390600098 Active 2023 BAKARI Souza [address], [address], [place], [address] , [facility] 4 09:46:43 Night sweats 69526722 Active 2023 BAKARI Souza [address], [address], [place], [address] , [facility] 4 09:58:56 Vulvovagin itis 16854835 Active 2023 BAKARI Souza [address], [address], [place], [address] , [facility] 4 16:14:19 Increased frequency of urination 297544925 Active 2023 Amanda Arana RN null, [facility] 4 10:30:59 Insomnia 484494350 Active 2023 BAKARI Souza [address], [address], [place], [address] , [facility] 4 14:51:25 Anxiety 30721328 Active 2023 BAKARI Souza [address], [address], [place], [address] , [facility] 4 14:40:07 Pain in right hand 2689644396001 09 Active 2024 Amanda Arana RN null, [facility] 5 09:21:49 Problem Notes None recorded. Procedures Surgical History Date Name Laterality Status Provider Name and Address Organization Details Recorded Time Gastric Bypass completed Not Available [facility] 08/06/2022 00:49:03 Imaging Results Imaging Date Name Status LastModified by Organiz ation Details LastModified Time 05/13/2022 MAMMO, screening, bilateral completed [id number] [facility] [address] [place] [address], [address], 08/06/2022 01:03:01 06/23/2022 PET-CT, skull base to mid-thigh scan completed [id number] Information not available 08/06/2022 01:03:01 02/04/2023 nerve conduction study/EMG (PROC) completed [address] [place] [address], [address], 02/04/2023 17:05:13 02/05/2023 XR, cervical spine, 2 or 3 view completed [email or web address] [facility] [address] [facility] [address], [place], [address], 02/05/2023 14:09:28 Procedure Notes None recorded. Medical Equipment None Reported. Allergies No known drug allergies Medications Name Sig Start Date Stop Date Status Note LastModified by Organization Details LastModified Time cyclobenzap rine 10 mg tablet TAKE 1 TABLET BY MOUTH EVERY DAY AT BEDTIME active Not Available Not Available No t Available metformin 500 mg tablet 11/27 completed Not Available Not Available Not Available neomycin-po lymyxin-hyd rocort 3.5 mg/mL-10,00 0 unit/mL-1 % ear solution active Not Available Not Available Not Available trazodone 50 mg tablet Take 1 tablet every day by oral route at bedtime for 30 days, for sleep. active Not Available Not Available No t Available lisinopril 20 mg-hydrochl orothiazide 12.5 mg tablet Take 1 tablet every day by oral route. 12/13 completed Not Available Not Available Not Available azithromyci n 250 mg tablet Take 2 TABLET EVERY DAY by oral route for 1 day. Than 1 tablet for 4 days active Not Available Not Available No t Available fluconazole 150 mg tablet active Not Available Not Available Not Available hydrocodone 5 mg-acetamin ophen 325 mg tablet TK 1 T PO Q 6 H active Not Available Not Available No t Available Nystop 100,000 unit/gram topical powder prn active Not Available Not Available Not Available metronidazo le 0.75 % (37.5 mg/5 gram) vaginal gel INSERT 1 APPLICATO RFUL VAGINALLY AT BEDTIME FOR 5 NIGHTS active Not Available Not Available No t Available ondansetron HCl 4 mg tablet 12/13 completed Not Available Not Available Not Available prednisone 20 mg tablet 2 tabs po twice daily for 2 days ,1 tab twice daily for 5 days; 0.5tab twice daily for 2 days ,0.5 tab for 1 day . TAKE 2ND DOSE EVERY DAY AT NOON . A 10 DAY COURSE active Not Available Not Available No t Available sulfamethox azole 800 mg-trimetho prim 160 mg tablet TAKE 1 TABLET BY MOUTH EVERY 12 HOURS FOR 10 DAYS active Not Available Not Available No t Available omeprazole 40 mg capsule,del ayed release 12/13 completed Not Available Not Available Not Available aspirin 81 mg tablet,balaji yed release Take 1 tablet every day by oral route. 12/11 completed Not Available Not Available Not Available triamcinolo ne acetonide 0.1 % topical cream APPLY A THIN LAYER TO THE AFFECTED AREA(S) BY TOPICAL ROUTE 2 TIMES PER DAY 2022 active Not Available Not Available Not Avai lable levothyroxi ne 25 mcg tablet active Not Available Not Available Not Available Synthroid 175 mcg tablet active Not Available Not Available Not Available magnesium oxide 400 mg (241.3 mg magnesium) tablet Take 1 tablet every day by oral route. active Not Available Not Available No t Available fluconazole 50 mg tablet active Not Available Not Available Not Available ropinirole 0.5 mg tablet TAKE 1 TABLET BY MOUTH EVERY DAY AT BEDTIME 12/13 completed Not Available Not Available Not Available clotrimazol e-betametha sone 1 %-0.05 % topical cream active Not Available Not Available Not Available hyoscyamine 0.125 mg sublingual tablet 12/13 completed Not Available Not Available Not Available ursodiol 300 mg capsule 12/13 completed Not Available Not Available Not Available levothyroxi ne 150 mcg tablet active Not Available Not Available Not Available hydrochloro thiazide 12.5 mg capsule 1 po daily active Not Available Not Available No t Available nystatin-tr iamcinolone 100,000 unit/g-0.1 % topical cream APPLY TOPICALLY TO EXTERNAL VULVAR AREA TWICE DAILY active Not Available Not Available No t Available magnesium 250 mg tablet Take 2 tablets every day by oral route. 2021 active Not Available Not Available Not Avai lable ergocalcife rol (vitamin D2) 1,250 mcg (50,000 unit) capsule TAKE 1 CAPSULE BY MOUTH 1 TIME A WEEK 12/13 completed Not Available Not Available Not Available levofloxaci n 500 mg tablet Take 1 tablet every 24 hours by oral route for 10 days. active Not Available Not Available No t Available scopolamine 1 mg over [address] 1 PATCH ON SKIN BEHIND EAR AT 8PM THE NIGHT PRIOR TO SURGERY 12/13 completed Not Available Not Available Not Available hydroxyzine HCl 10 mg tablet Take 1 tablet 3 times a day by oral route as needed for 10 days, for anxiety. active Not Available Not Available No t Available Calcitrate 200 mg (950 mg) tablet TK 2 TS PO BID FOR CALCIUM REPLACEME NT active Not Available Not Available No t Available clotrimazol e 1 % topical cream MARTINEZ AA BID 11/27 completed Not Available Not Available Not Available Calcium + D 600 mg-5 mcg (200 unit) tablet Take 2 tablets every day by oral route. 2021 active Not Available Not Available Not Avai lable calcitriol 0.25 mcg capsule active Not Available Not Available Not Available amoxicillin 875 mg-potassiu m clavulanate 125 mg tablet TAKE 1 TABLET BY MOUTH IN THE MORNING AND AT BEDTIME FOR 10 DAYS 12/15 completed Not Available Not Available Not Available Synthroid 137 mcg tablet 12/13 completed Not Available Not Available Not Available losartan 100 mg-hydrochl orothiazide 12.5 mg tablet Take 1 tablet every day by oral route. 12/13 completed Not Available Not Available Not Available multivitami n 1 tab 2 times daily 2021 active Not Available Not Available Not Avai lable aprepitant 40 mg capsule TAKE 1 CAPSULE BY MOUTH AT 8PM THE NIGHT PRIOR TO SURGERY 12/13 completed Not Available Not Available Not Available Biotin Plus Keratin 10,000 mcg-100 mg tablet Take 1 tablet by oral route. 12/15 completed Not Available Not Available Not Available B12 Active 500mcg -- 1 tab once a day 12/15 completed Not Available Not Available Not Available Flucelvax Quad (PF) 60 mcg (15 mcg x 4)/0.5 mL IM syringe [facility]ARM[facility]MINIST[facility] 07/02 completed Not Available Not Available Not Available Flowflex COVID-19 Antigen Home Test kit FOLLOW INSTRUCTI ONS INCLUDED WITH THE PACKAGE. 12/15 completed Not Available Not Available Not Available Vitals Date Recorded Body mass index (BMI) Body mass index (BMI) Body height Body height Oxygen saturation Oxygen saturation in Arterial blood by Pulse oximetry Oxygen saturation Oxygen saturation in Arterial blood by Pulse oximetry Heart rate Heart rate Body temperature Body temperature Body weight Body weight Systolic blood pressure Diastolic blood pressure Systolic blood pressure Diastolic blood pressure Provider Name and Address Organization Details Last Updated DateTime 3 45.5 kg/m2 29.8 kg/m2 157.48 cm 157.48 cm 97 % 97 % 98 % 98 % 92 /min 67 /min 96.9 [degF] 96.8 [degF] 687717. 5 g 69871.5 6 g 140 mm[Hg] 96 mm[Hg] 124 mm[Hg] 80 mm[Hg] Not Available [facility] 3 00:50:04 Date Recorded Body height Body mass index (BMI) Body weight Body temperature Heart rate Oxygen saturation Oxygen saturation in Arterial blood by Pulse oximetry Systolic blood pressure Diastolic blood pressure Provider Name and Address Organization Details Last Updated DateTime 3 157.48 cm 23.8 kg/m2 63791.0 1 g 97.7 [degF] 64 /min 99 % 99 % 100 mm[Hg] 64 mm[Hg] SHALINI Torres [facility] [employer] 3 11:57:00 Date Recorded Body height Body mass index (BMI) Body weight Body temperature Heart rate Oxygen saturation Oxygen saturation in Arterial blood by Pulse oximetry Systolic blood pressure Diastolic blood pressure Provider Name and Address Organization Details Last Updated DateTime 3 157.48 cm 24.9 kg/m2 44072.5 6 g 98.1 [degF] 72 /min 98 % 98 % 108 mm[Hg] 62 mm[Hg] Sridevi vora CMA [facility] [employer] 3 16:10:37 Date Recorded Body height Provider Name an d Address Organization Details Last Updated DateTime 10/15/2023 157.48 cm Amanda Arana RN [facility] I L [employer] 10/15/2023 10:30:21 Social History Question Answer Notes LastModified by Organizat ion Details LastModified Time Tobacco Smoking Status Former Smoker Not Available [facility] 08/06/2022 00:46:18 What Is Your Level Of Alcohol Consumption? None [id number] Information not available 08/06/2022 In The 14 Days Before Symptom Onset, Have You Had Close Contact With A Laboratory-confirm ed COVID-19 While That Case Was Ill? No [id number] Information not available 08/06/2022 In The 14 Days Before Symptom Onset, Have You Had Close Contact With A Person Who Is Under Investigation For COVID-19 While That Person Was Ill? No [id number] Information not available 08/06/2022 How Much Tobacco Do You Smoke? 0.5 PPD [id number] Information not available 08/06/2022 How Many Years Have You Smoked Tobacco? 2 [id number] Information not available 08/06/2022 Sex: Unknown Functional Status None recorded. Mental Status None recorded. Family History Relationship Description Onset Age of this Age Resolved Age Notes LastModified by Organization Details LastModified Time Mother Family history of malignant neoplasm [id number] Not available 08/06/2022 00:49:04 Mother Non-Hodgkin' s lymphoma (clinical) [id number] Not available 08/06/2022 00:49:04 Sister Hypertensive disorder [id number] Not available 08/06/2022 00:49:04 Maternal Aunt Hypertensive disorder [id number] Not available 08/06/2022 00:49:05 Maternal Aunt Diabetes mellitus [id number] Not available 08/06/2022 00:49:05 Maternal Uncle Hypertensive disorder [id number] Not available 08/06/2022 00:49:05 Maternal Uncle Heart disease [id number] Not available 08/06/2022 00:49:05 Maternal Grandmother Diabetes mellitus [id number] Not available 08/06/2022 00:49:05 Medical History No medical history recorded. Gynecological HistoryNo gynecological history recorded. Obstetrics History GPAL:G 0 P 0 0 0 0 Past Encounters Encounter ID Performer Location Encounter Start Date Encounter Closed Date Diagnosis/Indication Diagnosis SNOMED-CT Code Diagnosis ICD10 Code Diagnosis Note [id number] [facility] [place] [address] 08/13/2020 00:00:00 08/13/2020 20:32:26 [id number] [facility] [place] [address] 12/11/2020 00:00:00 12/11/2020 09:56:47 [id number] [facility] [place] [address] [facility] [place] [address] 02/14/2021 00:00:00 02/14/2021 20:54:13 [id number] [facility] [place] [address] [place] [address] 12/13/2021 00:00:00 12/13/2021 18:18:44 [id number] Malia Tejeda MD [facility] [place] [address] [place] [address] [place] [address] 12/15/2022 11:49:17 12/15/2022 12:39:59 Adult health examination 285689234 Z00.00 Eruption [id number] R21 [id number] Malia Tejeda MD [facility] [place] [address] [place] [address] [place] [address] 02/05/2023 16:02:09 02/06/2023 08:49:47 Thoracic back pain 916742080 M54.6 Biofreeze. Heat and NSAIDs prn Carpal yanira luis manuel syndrome 59167688 G56.03 Use cock up splints at bed time [id number] BAKARI Souza [facility] [place] [address] [facility] [place] [address] 10/15/2023 10:15:57 11/09/2023 10:50:57 Increased frequency of urination 983622347 R35.0 Health Concerns Section Related Observation LastModified by Organization Detai ls LastModified Time None Recorded Concern Status LastModified by Organization Details LastModified Time None Recorded Advance Directives Directive None Recorded Payers Encounter Date Sequence Insurance Name Policy Number Policy Conroy Covered Member ID Conroy Member ID Guarantor Name 12/15/2022 1 [employer] - CHOICE PLUS [id number] Nedra Huerta Darren [id number] Nedra Huerta Darren 02/05/2023 1 [employer] - CHOICE PLUS [id number] Nedra Huerta Darren [id number] Nedra Huerta Darren 10/15/2023 1 [facility] [id number] Nedra Banks [id number] Nedra Banks Notes Date Note Type Note Provider Name and Address Organization Details Recorded Time 12/15/2022 text/html Here today for annual physical. No complaints. Has a spot on back. 3 weeks ago got rash on legs. No itching.. Put HC cream on it and no help. No BW needed. UTD with mammogram. Just had a colonoscopy a few months ago. All was ok. Malia Tejeda MD [address], [facility] [address], [place], [address], Unified Office 12/15/2022 18:41:06 02/05/2023 text/html Here today c/o upper back pain. From shoulder blades up has tingling and numbness that is constant. Using Biofreeze. Has numbness across back. She had NCS done yesterday and showed mild CTS. Pt had xray of cervical spine and this was negative. Malia Tejeda MD [address], [facility] [address], [place], [address], Unified Office 02/05/2023 21:13:07 OBGyn Episode No OBEpisode recorded.
--- OUTSIDE RECORDS SUMMARY | 2024-07-14 15:57 | XMS_ITS | Clinical Summary ---
Author Organization [facility] Address [address] [place] [address] Care Team Providers Care Talk Show Host Name Role Phone Cathy Schuster MD Unavailable Jak Bradford Primary Care Provider + Allergies No known active allergies Medications magnesium oxide (MAG-OX) 400 mg (241.3 mg elemental magnesium) tabletIndications: supplement Take 400 mg by mouth every morning Active nystatin-triamcino lone creamIndications:r tiff Apply 1 application topically 2 (two) times a day 11/07/19 21 Active multivitamin tabletIndications: Vitamin Deficiency Prevention Take 1 tablet by mouth 2 (two) times a day 60 tablet 5 05/28/20 21 Active cyanocobalamin, vitamin B-12, 500 mcg tablet,disintegrat ingIndications:Pre vention of Vitamin B12 Deficiency Place 500 mcg under the tongue daily 30 tablet 11 05/28/20 21 Active ondansetron (ZOFRAN) 4 mg tablet Take 1 tablet (4 mg total) by mouth every 6 (six) hours as needed for nausea or vomiting 20 tablet 2 05/28/20 21 Active biotin-keratin (Biotin Plus Keratin) 10,000-100 mcg-mg tablet 11/11/19 22 Active calcium carbonate-vitamin D3 1500 mg (600 mg elemental) -200 units per tablet daily Act marv metroNIDAZOLE (METROGEL) 0.75 % (37.5mg/5 gram) vaginal gel metronidazole 0.75 % (37.5 mg/5 gram) vaginal gel Active Synthroid 175 mcg tabletIndications: Postoperative hypothyroidism Take one tablet 6 days per week. 90 tablet 05/23/20 24 Active Active Problems Problem Noted Date Diagnosed Date Nutritional counseling 02/21/2021 No diagnosis on [place] I 02/04/2021 Obstructive sleep apnea 02/04/2021 Morbid obesity 01/02/2021 Postoperative hypothyroidism 10/22/2020 Breast mass, left 01/13/2020 Vitamin D deficiency 11/22/2018 Abnormal mammogram of left breast 09/02/2018 Migraine 12/01/2017 Obesity with body mass index 30 or greater 11/18 Papillary carcinoma of thyroid 08/10/2013 Cancer Staging:Pathologic:Stage I(pT3, pN1a, cM0, Age at diagnosis: < 55 years) - Unsigned Essential hypertension 07/15/2013 Fatigue 04/14/2013 Resolved Problems Problem Noted Date Diagnosed Date Resolved Date Nontoxic single thyroid nodule 04/14/2013 11/22/2018 Encounters Date Type Department Care Team Description 07/11/2024 3:45 PM SEO ASSOCIATE Lab [facility] Outpatient Lab at [address] [address] Essential hypertension (Primary Dx) 07/11/2024 3:40 PM SEO ASSOCIATE - 07/11/2024 11:59 PM SEO ASSOCIATE Hospital Encounter [address] [address] Postoperative hypothyroidism Discharge Disposition: Discharge to home or self care 06/06/2024 Telephone [facility] Scheduling [address] [place] [address] Marlen Salinas synthroid denial 06/02/2024 Telephone [facility] Endocrinology Metabolism and Lipid [address] [place] [address] [address] [place] [address] Connor Perez, EMT Prior Auth; PAP approval from Last 3 Months Immunizations Name Administration Dates Next Due Influenza, Quadrivalent, Jodie l Culture-based MDCK, Preservative Free, Antibiotic Free, Intramuscular 03/17/2020 Influenza, Unspecified 04/08/2022,03/12/2021 Pfizer SARS-CoV-2 Monovalent Vaccination (12+ Yrs) PURPLE 09/16/2020,08/23/2020 Surgical History Surgery Date Site/Laterality Comments IR FINE NEEDLE ASPIRATION W IMAGE GUIDANCE 04/15/2013 N/A ORAL SURGERY 06/08/1987 - 06/07/1988 WISDOM TOOTH EXTRACTION 06/08/1993 - 06/07/1994 ANKLE SURGERY 06/08/2008 - 06/07/2009 Left THYROID SURGERY 06/08/2012 - 06/07/2013 BREAST BIOPSY 03/22/2019 Left TONSILLECTOMY Medical History Medical History Date Comments Headache Overweight Thyroid disease Cancer (CMS/HCC) (HCC) Hypertension Morbid obesity (HCC) Sleep apnea PONV (postoperative nausea and vomiting) significant nausea after thyroidectomy Family History Medical History Relation Name Comments Alcohol abuse Father Cancer Mother Non-Hodgkin's Lymphoma Mother Obesity Mother Melanoma Mother's Brother Anesthesia problems Neg Hx Relation Name Status Comments Father Mother Mother's Brother Social History Tobacco Use Types Packs/Day Years Used Date Smoking Tobacco: Former Cigarettes 0.5 2 1 - 1991 Smokeless Tobacco: Never Tobacco Cessation:Counseling Given: Not Answered Alcohol Use Standard Drinks/Week Comments Yes 0 [...] AM CDT Legal Sex Female 8:04 AM SEO ASSOCIATE Gender Identity Not on file Sexual Orientation Straight 09/01/2018 11 :03 AM CDT Obstetrics History Last Filed Vital Signs Vital Sign Reading Time Taken Comments Blood Pressure 105/70 05/13/2022 11:41 AM SEO ASSOCIATE Pulse 61 05/13/2022 11:41 AM SEO ASSOCIATE Temperature 36.8 C (98.2 F) 05/13/2022 11:41 AM SEO ASSOCIATE Respiratory Rate 16 05/30/2021 8:30 AM SEO ASSOCIATE Oxygen Saturation 95% 05/30/2021 8:30 AM SEO ASSOCIATE Inhaled Oxygen Concentration - - Weight 59 kg (130 lb) 06/23/2022 7:06 AM SEO ASSOCIATE Height 157.5 cm (5' 2 ) 06/23/2022 7:06 AM SEO ASSOCIATE Body Mass Index 23.78 06/23/2022 7:06 AM SEO ASSOCIATE Plan of Treatment Health Maintenance Due Date Last Done Comments Cervical Cancer Screening 1973 Colon Cancer Screening-Colonoscopy 1973 Depression Screening 1973 Hepatitis C Screening 1973 DTaP/Tdap/Td Vaccine (1 - Tdap) 1984 Hepatitis B Screening 10/01/1991 Regular Well Visit/Exam 18-64 10/01/1991 Zoster Vaccine (1 of 2) 10/01/2023 Covid-19 Vaccine (3 - season) 2024 09/16/2020, 08/23/2020 Influenza Vaccine (#1) 2024 , 03/12/2021, 03/17/2020 Breast Cancer Screening-Mammogram 05/19/2024 05/19/2023, 05/21/2022, 05/13/2022, Additional history exists Pneumococcal vaccine <65 Aged Out No longer eligible based on patient's age to complete this topic Procedures Procedure Name Priority Date/Time Associated Diagnosis Comments TSH Routine 07/11/2024 3:40 PM SEO ASSOCIATE Postoperative hypothyroidism T4, FREE Routine 07/11/2024 3:40 PM SEO ASSOCIATE Postoperative hypothyroidism SCREENING MAMMOGRAM BILATERAL W SEAN Schedule Routine, Read Routine (OP Routine) 05/19/2023 9:45 AM SEO ASSOCIATE Screening mammogram, encounter for from Last 3 Months or Most Recently Relevant to Health Maintenance Results * (ABNORMAL) TSH (07/11/2024 3:40 PM SEO ASSOCIATE) Thyroid Stimulating Hormone 0.26(L) 0.30 - 4.20 mcIUnit/mL Blood 07/11/2024 3:40 PM SEO ASSOCIATE 07/11/2024 9:22 PM SEO ASSOCIATE us Hannah lAvarado MD LAB BLOOD ORDERABLES Final Resu lt [facility] [address] [facility] [place] [address] * T4, free (07/11/2024 3:40 PM SEO ASSOCIATE) Free T4 1.61 0.90 - 1.70 ng/dL Blood 07/11/2024 3:40 PM SEO ASSOCIATE 07/11/2024 9:22 PM SEO ASSOCIATE us Hannah Alvarado MD LAB BLOOD ORDERABLES Final Resu lt [facility] [address] [address] [facility] [place] [address] * Screening Mammogram Bilateral W Sean (05/19/2023 9:45 AM SEO ASSOCIATE) Anatomical Region Laterality Modality Breast Bilateral Mammography Narrative 05/20/2023 9:52 AM SEO ASSOCIATE Mammogram Technique: Bilateral Digital Breast Tomosynthesis, Bilateral C-view 2D Screening mammogram. Views obtained: bilateral craniocaudal and bilateral mediolateral oblique. Computer Aided Detection was performed. Mammogram Findings: The present examination has been compared to prior imaging studies performed at [facility] on 01/13/2020, 01/07/2021 and 05/13/2022. The breasts are extremely dense, which lowers the sensitivity of mammography. There is no suspicious abnormality in either breast. Impression: There is no mammographic evidence of malignancy. Annual screening mammography is recommended.Consider breast MRI for supplemental screening given the patient's extremely dense breast tissue. OVERALL FINAL ASSESSMENT: BI-RADS CATEGORY 1: Negative. Procedure Note Kellen Ramirez MD - 05/20/2023 Mammogram Technique: Bilateral Digital Breast Tomosynthesis, Bilateral C-view 2D Screening mammogram. Views obtained: bilateral craniocaudal and bilateral mediolateral oblique. Computer Aided Detection was performed. Mammogram Findings: The present examination has been compared to prior imaging studies performed at [facility] on 01/13/2020, 01/07/2021 and 05/13/2022. The breasts are extremely dense, which lowers the sensitivity of mammography. There is no suspicious abnormality in either breast. Impression: There is no mammographic evidence of malignancy. Annual screening mammography is recommended.Consider breast MRI for supplemental screening given the patient's extremely dense breasttissue. OVERALL FINAL ASSESSMENT: BI-RADS CATEGORY 1: Negative. us Self Screening Mammogram IMG MAMMO PROCEDURES Fi nal Result from Last 3 Months or Most Recently Relevant to Health Maintenance Insurance [facility] OTHER Address: [facility] [address] [place] [address] [employer] [facility] PLUS [employer] Advance Directives For more information, please contact: [phone] * Full Code (Latest Code Status on File) Date Activated Date Inactivated Comments 05/27/2021 6:23 PM 05/30/2021 8:43 PM Care Teams Talk Show Host Relationship Specialty Start Date End Date Jak Bradford PA [facility] [place] [address] PCP - General Internal Medicine 06/30/24 Cathy Schuster MD Radiation Oncologist Radiation Oncology 02/17/18
--- OUTSIDE RECORDS SUMMARY | 2024-07-14 15:57 | XMS_ITS | Referral Summary ---
Author Organization [facility] al Address [address] [place] [address] Care Team Providers Care Absorption Plant Operator Helper Name Role Phone Cathy Schuster MD Unavailable Jak Bradford Primary Care Provider + Encounters Date Type Department Care Team Description 07/11/2024 3:40 PM GROUP CONTRACT ANALYST - 07/11/2024 11:59 PM GROUP CONTRACT ANALYST Hospital Encounter [facility] [id number] [place] [address] Postoperative hypothyroidism Discharge Disposition: Discharge to home or self care 07/11/2024 3:45 PM GROUP CONTRACT ANALYST Lab [facility] Outpatient Lab at [address] [address] Essential hypertension (Primary Dx) 06/06/2024 Telephone [facility] Scheduling [address] [place] [address] Marlen Salinas synthroid denial 06/02/2024 Telephone [facility] Endocrinology Metabolism and Lipid [address] [facility] [address] [place] [address] Connor Perez, EMT Prior Auth; PAP approval from Last 3 Months Allergies No known active allergies Medications magnesium oxide (MAG-OX) 400 mg (241.3 mg elemental magnesium) tabletIndications: supplement Take 400 mg by mouth every morning Active nystatin-triamcino lone creamIndications:r tiff Apply 1 application topically 2 (two) times a day 11/07/19 Active multivitamin tabletIndications: Vitamin Deficiency Prevention Take 1 tablet by mouth 2 (two) times a day 60 tablet 5 05/28/20 Active cyanocobalamin, vitamin B-12, 500 mcg tablet,disintegrat [...] Date Nutritional counseling 02/21/2021 No diagnosis on [place] I 02/04/2021 Obstructive sleep apnea 02/04/2021 Morbid [...] Date Nontoxic single thyroid nodule 04/14/2013 11/22/2018 Immunizations Name Administration Dates Next Due Influenza, Quadrivalent, Jodie l Culture-based MDCK, Preservative Free, Antibiotic Free, Intramuscular 03/17/2020 Influenza, Unspecified 04/08/2022,03/12/2021 Tracks.by SARS-CoV-2 Monovalent Vaccination (12+ Yrs) PURPLE 09/16/2020,08/23/2020 Social History Tobacco Use Types Packs/Day Years Used Date Smoking Tobacco: Former Cigarettes 0.5 2 1 990 - 1991 Smokeless Tobacco: Never Tobacco Cessation:Counseling [...] AM CDT Legal Sex Female 8:04 AM GROUP CONTRACT ANALYST Gender Identity Not on file Sexual Orientation Straight 09/01/2018 11 :03 AM CDT Last Filed Vital Signs Vital Sign Reading Time Taken Comments Blood Pressure 105/70 05/13/2022 11:41 AM GROUP CONTRACT ANALYST Pulse 61 05/13/2022 11:41 AM GROUP CONTRACT ANALYST Temperature 36.8 C (98.2 F) 05/13/2022 11:41 AM GROUP CONTRACT ANALYST Respiratory Rate 16 05/30/2021 8:30 AM GROUP CONTRACT ANALYST Oxygen Saturation 95% 05/30/2021 8:30 AM GROUP CONTRACT ANALYST Inhaled Oxygen Concentration - - Weight 59 kg (130 lb) 06/23/2022 7:06 AM GROUP CONTRACT ANALYST Height 157.5 cm (5' 2 ) 06/23/2022 7:06 AM GROUP CONTRACT ANALYST Body Mass Index 23.78 06/23/2022 7:06 AM GROUP CONTRACT ANALYST Plan of Treatment Not on file Procedures Procedure Name Priority Date/Time Associated Diagnosis Comments TSH Routine 07/11/2024 3:40 PM GROUP CONTRACT ANALYST Postoperative hypothyroidism T4, FREE Routine 07/11/2024 3:40 PM GROUP CONTRACT ANALYST Postoperative hypothyroidism SCREENING MAMMOGRAM BILATERAL W SEAN Schedule Routine, Read Routine (OP Routine) 05/19/2023 9:45 AM GROUP CONTRACT ANALYST Screening mammogram, encounter for from Last 3 Months or Most Recently Relevant to Health Maintenance Results * (ABNORMAL) TSH (07/11/2024 3:40 PM GROUP CONTRACT ANALYST) Thyroid Stimulating Hormone 0.26(L) 0.30 - 4.20 mcIUnit/mL Blood 07/11/2024 3:40 PM GROUP CONTRACT ANALYST 07/11/2024 9:22 PM GROUP CONTRACT ANALYST Hannah Alvarado MD LAB BLOOD ORDERABLES Final Resu lt Performing Organization Address [facility] Co de Phone Number [facility] [address] [facility] [place] [address] * T4, free (07/11/2024 3:40 PM GROUP CONTRACT ANALYST) Free T4 1.61 0.90 - 1.70 ng/dL Blood 07/11/2024 3:40 PM GROUP CONTRACT ANALYST 07/11/2024 9:22 PM GROUP CONTRACT ANALYST Hannah Alvarado MD LAB BLOOD ORDERABLES Final Resu lt Performing Organization Address [facility] de Phone Number [facility] [address] [facility] [place] [address] * Screening Mammogram Bilateral W Sean (05/19/2023 9:45 AM GROUP CONTRACT ANALYST) Anatomical Region Laterality Modality Breast Bilateral Mammography Narrative 05/20/2023 9:52 AM GROUP CONTRACT ANALYST Mammogram Technique: Bilateral Digital Breast Tomosynthesis, Bilateral C-view 2D Screening mammogram. Views obtained: bilateral craniocaudal and bilateral mediolateral oblique. Computer Aided Detection was performed. Mammogram Findings: The present examination has been compared to prior imaging studies performed at [facility] on 01/13/2020, 01/07/2021 and 05/13/2022. The [...] compared to prior imaging studies performed at [facility] on 01/13/2020, 01/07/2021 and 05/13/2022. The [...] Most Recently Relevant to Health Maintenance Insurance [facility] CHOICE PLUS IDPA Advance Directives For more information, please contact: [phone] * Full Code (Latest Code Status on File) Date Activated Date Inactivated Comments 05/27/2021 6:23 PM 05/30/2021 8:43 PM Care Teams Absorption Plant Operator Helper Relationship Specialty Start Date End Date Jak Bradford PA [address] [place] [address] [place] [address] PCP - General Internal Medicine 06/30/24 Cathy Schuster MD Radiation Oncologist Radiation Oncology 02/17/18
== END 2024-07-14 15:54 | disposition home or self-care (01) ==
PROVIDERS: PCP Physician Assistant; Visit Provider Physician Assistant
DX: M19.041 Primary osteoarthritis, right hand (principal)
CPT/HCPCS: 73130

== ENCOUNTER 2024-09-03 07:20 | Outpatient (CLI) | payer OTHER, MEDICAID, SELFPAY ==
--- OUTSIDE RECORDS SUMMARY | 2024-09-03 07:26 | XMS_ITS | Referral Summary ---
Author Organization [facility] al Address [address] [place] [address] Care Team Providers Care Lactation Coordinator Name Role Phone Cathy Schuster MD Unavailable [phone] Jak Bradford Primary Care Provider + Encounters Date Type Department Care Team Description 07/27/2024 3:16 PM BOAT LOADER HELPER - 07/27/2024 11:59 PM BOAT LOADER HELPER Hospital Encounter [facility] Breast Imaging [facility] Advanced [facility] ([facility]) [address] [place] [address] Screening mammogram, encounter for Discharge Disposition: Discharge to home or self care 07/27/2024 4:20 PM BOAT LOADER HELPER Office Visit [facility] Endocrinology Metabolism and Lipid [address] [facility] 13th [place] [address] [place] [id number] Hannah Alvarado MD Postoperative hypothyroidism (Primary Dx); Papillary carcinoma of thyroid (HCC); Vitamin D deficiency; Obesity, unspecified class, unspecified obesity type, unspecified whether serious comorbidity present; Screening for osteoporosis 07/11/2024 3:40 PM BOAT LOADER HELPER - 07/11/2024 11:59 PM BOAT LOADER HELPER Hospital Encounter [address] [address] Postoperative hypothyroidism Discharge Disposition: Discharge to home or self care 07/11/2024 3:45 PM BOAT LOADER HELPER Lab [facility] Outpatient Lab at [address] [address] Essential hypertension (Primary Dx) 06/06/2024 Telephone [facility] Scheduling [address] [id number] Marlen Salinas synthroid denial from Last 3 Months Allergies No known active allergies Medications magnesium oxide (MAG-OX) 400 mg (241.3 mg elemental magnesium) tabletIndications: supplement Take 1 tablet (400 mg total) by mouth every morning Active nystatin-triamcino lone [...] Synthroid 175 mcg tabletIndications: Postoperative hypothyroidism Take 1 tablet of 175mcg 6 days a week and 1 tablet of 50mcg the seventh day of the week. 90 tablet 3 10/19/19 25 Active Synthroid 50 mcg tabletIndications: Postoperative hypothyroidism Take 1 tablet of 175mcg 6 days a week and 1 tablet of 50mcg the seventh day of the week. 4 tablet 07/29/19 25 Active Active Problems Problem Noted Date Diagnosed Date Screening for osteoporosis 02/21/[address] diagnosis on [address] [place] 02/04/2021 Obstructive sleep apnea 02/04/2021 Obesity 01/02/2021 Postoperative hypothyroidism 10/22/2020 Breast mass, left [...] Nontoxic single thyroid nodule 04/14/2013 11/22/2018 Immunizations Immunization Administration Dates Next Due Influenza, Quadrivalent, Jodie l Culture-based MDCK, Preservative Free, Antibiotic Free, Intramuscular 03/17/2020 Influenza, Unspecified 04/08/2022,03/12/2021 Pfizer SARS-CoV-2 Monovalent Vaccination (12+ Yrs) PURPLE 09/16/2020,08/23/2020 Social History Tobacco Use Types Packs/Day Years Used Date Smoking Tobacco: Former Cigarettes 0.5 2 1 0 - 1991 Smokeless Tobacco: Never Tobacco Cessation:Counseling [...] AM CDT Legal Sex Female 8:04 AM BOAT LOADER HELPER Gender Identity Not on file Sexual Orientation Straight 09/01/2018 11 :03 AM CDT Last Filed Vital Signs Vital Sign Reading Time Taken Comments Blood Pressure 114/76 07/27/2024 3:48 PM BOAT LOADER HELPER Pulse 72 07/27/2024 3:48 PM BOAT LOADER HELPER Temperature 36.9 C (98.4 F) 07/27/2024 3:48 PM BOAT LOADER HELPER Respiratory Rate 16 05/30/2021 8:30 AM BOAT LOADER HELPER Oxygen Saturation 95% 05/30/2021 8:30 AM BOAT LOADER HELPER Inhaled Oxygen Concentration - - Weight 64.4 kg (142 lb) 07/27/2024 3:48 PM BOAT LOADER HELPER Height 157.5 cm (5' 2 ) 07/27/2024 3:48 PM BOAT LOADER HELPER Body Mass Index 25.97 07/27/2024 3:48 PM BOAT LOADER HELPER Plan of Treatment Not on file Procedures Procedure Name Priority Date/Time Associated Diagnosis Comments SCREENING MAMMOGRAM BILATERAL W ASHLYN Schedule Routine, Read Routine (OP Routine) 07/27/2024 3:32 PM BOAT LOADER HELPER Screening mammogram, encounter for TSH Routine 07/11/2024 3:40 PM BOAT LOADER HELPER Postoperative hypothyroidism T4, FREE Routine 07/11/2024 3:40 PM BOAT LOADER HELPER Postoperative hypothyroidism from Last 3 Months Results * Screening Mammogram Bilateral W Ashlyn (07/27/2024 3:32 PM BOAT LOADER HELPER) Anatomical Region Laterality Modality Breast Bilateral Mammography Narrative 07/28/2024 10:55 AM BOAT LOADER HELPER Mammogram Technique: Bilateral Digital Breast Tomosynthesis, Bilateral C-view 2D Screening mammogram. Views obtained: bilateral craniocaudal and bilateral mediolateral oblique. Computer Aided Detection was performed. Mammogram Findings: The present examination has been compared to prior imaging studies performed at [facility] on 01/07/2021, 05/13/2022 and 05/19/2023. The breasts are extremely dense, which lowers the sensitivity of mammography. There is no suspicious abnormality in either breast. Impression: There is no mammographic evidence of malignancy. Annual screening mammography is recommended. Consider breast MRI for supplemental screening given the patient's extremely dense breast tissue. OVERALL FINAL ASSESSMENT: BI-RADS CATEGORY 1: Negative. Procedure Note Susan De Oliveira MD - 07/28/2024 Mammogram Technique: Bilateral Digital Breast Tomosynthesis, Bilateral C-view 2D Screening mammogram. Views obtained: bilateral craniocaudal and bilateral mediolateral oblique. Computer Aided Detection was performed. Mammogram Findings: The present examination has been compared to prior imaging studies performed at [facility] on 01/07/2021, 05/13/2022 and 05/19/2023. The breasts are extremely dense, which lowers the sensitivity of mammography. There is no suspicious abnormality in either breast. Impression: There is no mammographic evidence of malignancy. Annual screening mammography is recommended. Consider breast MRI for supplemental screening given the patient's extremely dense breasttissue. OVERALL FINAL ASSESSMENT: BI-RADS CATEGORY 1: Negative. us Self Screening Mammogram IMG MAMMO PROCEDURES Fi nal Result * (ABNORMAL) TSH (07/11/2024 3:40 PM BOAT LOADER HELPER) Thyroid Stimulating Hormone 0.26(L) 0.30 - 4.20 mcIUnit/mL Blood 07/11/2024 3:40 PM BOAT LOADER HELPER 07/11/2024 9:22 PM BOAT LOADER HELPER Hannah Alvarado MD LAB BLOOD ORDERABLES Final Resu lt Performing Organization Address City/[facility] Co de Phone Number BOBY [phone] Department [place] [employer] [place] [address] * T4, free (07/11/2024 3:40 PM BOAT LOADER HELPER) Free T4 1.61 0.90 - 1.70 ng/dL Blood 07/11/2024 3:40 PM BOAT LOADER HELPER 07/11/2024 9:22 PM BOAT LOADER HELPER Hannah Alvarado MD LAB BLOOD ORDERABLES Final Resu lt Performing Organization Address City/[facility] Co de Phone Number BOBY [phone] Department [place] [employer] [place] [address] from Last 3 Months Insurance IDPA [employer] [facility] Address: [address] [address] [place] [address] [facility] CHOICE PLUS [facility] H[facility]/PPO Address: [address] [address] [place] [address] ID[employer] Advance Directives For more information, please contact: [phone] * Full Code (Latest Code Status on File) Date Activated Date Inactivated Comments 05/27/2021 6:23 PM 05/30/2021 8:43 PM Care Teams Lactation Coordinator Relationship Specialty Start Date End Date Jak Bradford PA [facility] [place] [address] PCP - General Internal Medicine 06/30/24 Cathy Schuster MD Radiation Oncologist Radiation Oncology 02/17/18
--- OUTSIDE RECORDS SUMMARY | 2024-09-03 07:26 | XMS_ITS | Encounter Summary ---
Author Organization [facility] Address [address] [place] [address] Phone Care Team Providers Care Instrumentation Technologist Name Role Phone Malia Tejeda MD Primary Care Provider [phone] Cathy Schuster MD Unavailable Jak Bradford Primary Care Provider + Encounter Details Date Type Department Care Team (Late st Contact Info) Description 11/21/2021 Telephone [facility] Minimally Invasive Surgery [address] [place] [address] Medical Office Building [address] [phone] Nadira Gray, B.A. Social History Tobacco [...] AM CDT Legal Sex Female 8:04 AM INSTRUCTIONAL SUPPORT TECHNICIAN Gender Identity Not on file Sexual Orientation Straight 09/01/2018 11 :03 AM CDT documented as of this encounter Plan of Treatment Not on file documented as of this encounter Visit Diagnoses Not on filedocumented in this encounter Care Teams Instrumentation Technologist Relationship Specialty Start Date End Date Malia Tejeda MD [address] [place] [address] [place] [address] PCP - General 12/12/16 06/29/24 Jak Bradford PA [address] [place] [address] [place] [address] PCP - General Internal Medicine 06/30/24 Cathy Schuster MD [address] [place] [address] [place] [address] Radiation Oncologist Radiation Oncology 02/17/18 documented as of this encounter
--- OUTSIDE RECORDS SUMMARY | 2024-09-03 07:26 | XMS_ITS | Clinical Summary ---
Author Organization [facility] al Address [address] [place] [address] Care Team Providers Care Metal Trimmer Name Role Phone Cathy Schuster MD Unavailable [...] Screening for osteoporosis 02/21/2021 No diagnosis on [place] I 02/04/2021 Obstructive sleep apnea 02/04/2021 Obesity [...] Date Type Department Care Team Description 07/27/2024 4:20 PM SUPPLIER QUALITY MANAGER Office Visit [facility] Endocrinology Metabolism and Lipid [address] [facility] Medicine 13th [place] [address] [place] [address] Hannah Alvarado MD Postoperative hypothyroidism (Primary Dx); Papillary carcinoma of thyroid (HCC); Vitamin D deficiency; Obesity, unspecified class, unspecified obesity type, unspecified whether serious comorbidity present; Screening for osteoporosis 07/27/2024 3:16 PM SUPPLIER QUALITY MANAGER - 07/27/2024 11:59 PM SUPPLIER QUALITY MANAGER Hospital Encounter [facility] Advanced Medicine ([facility]) [address] [place] [address] Screening mammogram, encounter for Discharge Disposition: Discharge to home or self care 07/11/2024 3:45 PM SUPPLIER QUALITY MANAGER Lab [facility] Outpatient Lab at [address] [address] Essential hypertension (Primary Dx) 07/11/2024 3:40 PM SUPPLIER QUALITY MANAGER - 07/11/2024 11:59 PM SUPPLIER QUALITY MANAGER Hospital Encounter [facility] [address] [place] [address] Postoperative hypothyroidism Discharge Disposition: Discharge to home or self care 06/06/2024 Telephone [facility] Scheduling [address] [place] [address] Marlen Salinas synthroid denial from Last 3 Months Immunizations Immunization Administration Dates Next Due Influenza, [...] Date Comments Headache Overweight Thyroid disease Cancer (HCC) Hypertension Morbid obesity (HCC) Sleep apnea [...] AM CDT Legal Sex Female 8:04 AM SUPPLIER QUALITY MANAGER Gender Identity Not on file Sexual Orientation Straight 09/01/2018 11 :03 AM CDT Obstetrics History Last Filed Vital Signs Vital Sign Reading Time Taken Comments Blood Pressure 114/76 07/27/2024 3:48 PM SUPPLIER QUALITY MANAGER Pulse 72 07/27/2024 3:48 PM SUPPLIER QUALITY MANAGER Temperature 36.9 C (98.4 F) 07/27/2024 3:48 PM SUPPLIER QUALITY MANAGER Respiratory Rate 16 05/30/2021 8:30 AM SUPPLIER QUALITY MANAGER Oxygen Saturation 95% 05/30/2021 8:30 AM SUPPLIER QUALITY MANAGER Inhaled Oxygen Concentration - - Weight 64.4 kg (142 lb) 07/27/2024 3:48 PM SUPPLIER QUALITY MANAGER Height 157.5 cm (5' 2 ) 07/27/2024 3:48 PM SUPPLIER QUALITY MANAGER Body Mass Index 25.97 07/27/2024 3:48 PM SUPPLIER QUALITY MANAGER Plan of Treatment Health Maintenance Due Date Last Done Comments Cervical Cancer Screening 1973 Colon Cancer Screening-Colonoscopy 1973 Depression Screening 1973 Hepatitis C Screening 1973 DTaP/Tdap/Td Vaccine (1 - Tdap) 1984 Hepatitis B Screening 10/01/1991 Regular Well Visit/Exam 18-64 10/01/1991 Zoster Vaccine (1 of 2) 10/01/2023 Covid-19 Vaccine (3 - 2023- season) 2024 09/16/2020, 08/23/2020 Influenza Vaccine (#1) 2024 2, 03/12/2021, 03/17/2020 Breast Cancer Screening-Mammogram 07/27/2025 07/27/2024, 05/19/2023, 05/21/2022, Additional history exists Pneumococcal vaccine <65 Aged Out No longer eligible based on patient's age to complete this topic Procedures Procedure Name Priority Date/Time Associated Diagnosis Comments SCREENING MAMMOGRAM BILATERAL W ASHLYN Schedule Routine, Read Routine (OP Routine) 07/27/2024 3:32 PM SUPPLIER QUALITY MANAGER Screening mammogram, encounter for TSH Routine 07/11/2024 3:40 PM SUPPLIER QUALITY MANAGER Postoperative hypothyroidism T4, FREE Routine 07/11/2024 3:40 PM SUPPLIER QUALITY MANAGER Postoperative hypothyroidism from Last 3 Months Results * Screening Mammogram Bilateral W Ashlyn (07/27/2024 3:32 PM SUPPLIER QUALITY MANAGER) Anatomical Region Laterality Modality Breast Bilateral Mammography Narrative 07/28/2024 10:55 AM SUPPLIER QUALITY MANAGER Mammogram Technique: Bilateral Digital Breast Tomosynthesis, Bilateral C-view 2D Screening mammogram. Views obtained: bilateral craniocaudal and bilateral mediolateral oblique. Computer Aided Detection was performed. Mammogram Findings: The present examination has been compared to prior imaging studies performed at [facility] on 01/07/2021, 05/13/2022 and 05/19/2023. The [...] compared to prior imaging studies performed at [facility] on 01/07/2021, 05/13/2022 and 05/19/2023. The [...] Result * (ABNORMAL) TSH (07/11/2024 3:40 PM SUPPLIER QUALITY MANAGER) Thyroid Stimulating Hormone 0.26(L) 0.30 - 4.20 mcIUnit/mL Blood 07/11/2024 3:40 PM SUPPLIER QUALITY MANAGER 07/11/2024 9:22 PM SUPPLIER QUALITY MANAGER Hannah Alvarado MD LAB BLOOD ORDERABLES Final Resu lt [facility]Y [id number] [place] [address] * T4, free (07/11/2024 3:40 PM SUPPLIER QUALITY MANAGER) Free T4 1.61 0.90 - 1.70 ng/dL Blood 07/11/2024 3:40 PM SUPPLIER QUALITY MANAGER 07/11/2024 9:22 PM SUPPLIER QUALITY MANAGER Hannah Alvarado MD LAB BLOOD ORDERABLES Final Resu lt Performing Organization Address City/[facility] Co de Phone Number BOBY [phone] [place] [address] from Last 3 Months Insurance [facility] H[facility]/PPO Address: [address] [address] [place] [address] [facility] CHOICE PLUS [facility] H[facility]/PPO Address: [address] [address] [place] [address] ID[employer] Advance Directives For more information, please contact: [phone] * Full Code (Latest Code Status on File) Date Activated Date Inactivated Comments 05/27/2021 6:23 PM 05/30/2021 8:43 PM Care Teams Metal Trimmer Relationship Specialty Start Date End Date Jak Bradford PA [facility] [place] [address] PCP - General Internal Medicine 06/30/24 Cathy Schuster MD Radiation Oncologist Radiation Oncology 02/17/18
--- OUTSIDE RECORDS SUMMARY | 2024-09-03 07:27 | XMS_ITS | Data Portability ---
Author Organization [place] - [facility] [employer], Main Office Address [address] [place] [address] Assessment No assessment recorded. Plan of Treatment Reminders Order Date Submit Date Provider Last Modified By Organization Details Last Modified Time Details Appointments None recorded. Lab estradiol, serum [address], [address], 09:26:11 progesteron e, serum [address], [address], 09:26:12 testosteron e, total, serum [address], [address], 09:26:12 lh (luteinizin g hormone), serum [address], [address], 5 09:26:12 FSH (follicle-s timulating hormone), serum [address], [address], 5 09:26:12 vitamin D, 25-hydroxy, total, serum [address], [facility] [place], [address], 5 09:26:11 vitamin B12 + folate, serum or blood [address], [facility] [place], [address], 5 09:26:11 CBC w/ auto diff [address], [facility] [place], [address], 5 09:26:12 iron + total iron-bindin g capacity (TIBC), serum [address], [facility] [place], [address], 5 09:26:12 ferritin, serum or plasma [address], [facility] [place], [address], 5 09:26:12 lipid panel, serum [address], [facility] [place], [address], 5 09:26:11 CMP, serum or plasma [address], [facility] [place], [address], 5 09:26:11 CK (creatine kinase), total, serum [address], [address] [place] [address], [address], 5 09:26:11 urinalysis, dipstick 2023 024 [email or web address] [address], [place], [address], 4 16:47:47 culture, urine + sensitivity 2023 024 JOSSIE Not available 4 09:32:57 Referral None recorded. Procedures None recorded. Surgeries None recorded. Imaging None recorded. Medication Orders sulfamethox azole 800 mg-trimetho prim 160 mg tablet 2023 024 [id number], [address], [place], [id number], 4 11:24:32 cyclobenzap rine 10 mg tablet 2022 023 [email or web address] [facility] #35736, [address], [place], [id number], 5 16:48:35 triamcinolo ne acetonide 0.1 % topical cream 2022 023 [facility] #80459, [address], [place], [id number], 3 12:21:04 Patient TargetsNo targets recorded. Patient InstructionsNo instructions recorded. Reason for Referral None Reported. Results Created Date Observation Date Name Description Value Unit Range Abnormal Flag Note LastModifiedBy Organization Detail LastModifiedTime 12/28/19 22 12/27/2021 COLOG UARD cologuard result reportable positi ve negati ve abnormal POSIT JAYNE TEST RESUL T. A posit jayne Colog uard resul t shoul d be follo wed with a colon oscop y or visua l exami natio n of the colon . The eris l value (refe rence range ) for this assay is negat jayne. TEST DESCR IPTIO N: Pelican site algor ithmi c alexander sis of stool DNA-b iogeorgette [...] years or older , who are at [facility] for color ectal cance r (CRC) . Colog uard has been appro jared for use by the U.[place]. FDA. The perfo rmanc e of Colog uard was estab lishe d in a cross secti onal study of [facility] adult s aged 50-84 . Colog [...] prosp ectiv e cross -sect ional scree betzy study of 10,00 0 indiv idual s at [facility] risk for color ectal cance r who [...] inter clary is every 3 years . ([place] zhu Socie ty and U.S. Multi -Soci ety Task Force ). Colog uard perfo rmanc e data in a 10,00 0 patie nt pivot al study using colon oscop y as the refer ence metho d can be acces sed at the follo wing locat ion: www.e xactl abs.c om/re sults . Addit ional descr iptio n of the Colog uard test proce ss, warni ngs and preca ution s can be found at www.c ologu cristina.c om. Not Available [facility] (Cologuard Orders Only) [address], [place], [address], 01/02/2022 01:31:22 10/15/19 24 10/15/2023 urina lysis , dipst ick Leukocytes (reference range: negative victor hugo/ l) Trace Not Available [address], [place], [address], 10/15/2023 10:30:46 10/15/19 24 10/15/2023 urina lysis , dipst ick Nitrite (reference rage: negative mg/dl) negati ve Not Available [address], [place], [address], 10/15/2023 10:30:46 10/15/19 24 10/15/2023 urina lysis , dipst ick Urobilinogen (reference range: 0.2-1 mg/dl) 0.2 Not Available [address], [place], [address], 10/15/2023 10:30:46 10/15/19 24 10/15/2023 urina lysis , dipst ick Protein (reference range: negative mg/dl) Negati ve Not Available [address], [place], [address], 10/15/2023 10:30:46 10/15/19 24 10/15/2023 urina lysis , dipst ick pH (reference range: 5-7) 6.5 Not Available [address], [place], [address], 10/15/2023 10:30:46 10/15/19 24 10/15/2023 urina lysis , dipst ick Blood (reference range: negative Rodney/ l) Non-He molyze d: Trace Not Available [address], [place], [address], 10/15/2023 10:30:46 10/15/19 24 10/15/2023 urina lysis , dipst ick Specific [place] (reference range: 1.005-1.030) 1.015 Not Available [address], [place], [address], 10/15/2023 10:30:46 10/15/19 24 10/15/2023 urina lysis , dipst ick Ketone (reference range: negative mg/dl) Negati ve Not Available [address], [place], [address], 10/15/2023 10:30:46 10/15/19 24 10/15/2023 urina lysis , dipst ick Bilirubin (reference range: negative mg/dl) Negati ve Not Available [address], [place], [address], 10/15/2023 10:30:46 10/15/19 24 10/15/2023 urina lysis , dipst ick Glucose (reference range: negative mg/dl) Negati ve Not Available [address], [place], [address], 10/15/2023 10:30:46 10/15/19 24 10/15/2023 urina lysis , dipst ick Appearance Clear Not Available [address], [place], [address], 10/15/2023 10:30:46 10/15/19 24 10/15/2023 urina lysis , dipst ick Color Yellow Not Available [address], [place], [address], 10/15/2023 10:30:46 05/21/20 22 05/13/2022 MAMMO , scree betzy, bilat eral No observ ation record ed. [id number] [facility] [address] [place] [address], [address], 08/06/2022 01:03:01 07/14/19 23 06/23/2022 PET-C T, skull base to mid-t high scan No observ ation record ed. [id number] Not Available 08/06/2022 01:03:01 02/05/20 23 02/04/2023 nerve condu ction study /EMG (PROC ) No observ ation record ed. [email or web address] [address], [address], 02/04/2023 17:05:13 02/06/20 23 02/05/2023 XR, cervi ravi spine , 2 or 3 view No observ ation record ed. [address] [address], [place], [address], 02/05/2023 14:09:28 07/14/19 25 07/14/2024 XR, hand, 3 or more view No observ ation record ed. [email or web address], [place], [address], 07/18/2024 10:27:00 07/28/19 25 07/27/2024 MAMMO , reji betzy, digit al, bilat eral No observ ation record ed. [email or web address] [place], [address], 09/01/2024 13:09:41 Result Notes None recorded. Problems Name Problem SNOMED Code Status Onset Date Resolution Date Notes Provider Name and Address Organization Details Recorded Time Neoplasm of thyroid gland 560206668 Active Not Available [facility] 3 00:54:56 Vitamin D deficiency 34150755 Active Not Available [facility] 3 00:54:56 Malignant tumor of thyroid gland 242783711 Active 2019 Not Available [facility] 3 00:54:56 Goiter 0782313 Active Not Available [facility] 3 00:54:56 Sleep disorder 78586678 Active Not Available [facility] 3 00:54:56 Tinea cruris 095801591 Active Not Available [facility] 3 00:54:56 Hypothyroi dism 24464900 Active Not Available [facility] 3 00:54:56 Obesity 599183606 Active 2016 Not Available [facility] 3 00:54:56 Upper respirator y infection 66119158 Active Not Available [facility] 3 00:54:56 Hyperlipid emia 37076018 Active Not Available [facility] 3 00:54:56 Obstructiv e sleep apnea syndrome 93618085 Active 2016 Not Available [facility] 3 00:54:56 Eruption 377961040 Active 2022 Malia Tejeda MD [address] [facility], [facility] [address], [place], [address] , [place] - [facility] 3 12:06:01 Post-surgi ravi malabsorpt ion 605600457 Active 2022 Amanda Arana RN null, [facility] 3 15:54:15 Paresthesi a 01810337 Active 2022 Amanda Arana RN null, [facility] 3 15:56:22 Cervical radiculopa thy 25387269 Active 2022 right BAKARI Souza [address], [address], [place], [address] , [facility] 4 09:47:17 Thoracic back pain 137600456 Active 2022 Malia Tejeda MD [address], [address], [place], [address] , [facility] 3 16:18:10 Carpal tunnel syndrome 77971336 Active 2022 Malia Tejeda MD [address], [address], [place], [address] , [facility] 3 16:20:16 Neuropathy 009489776 Active 2023 BAKARI Souza [address], [address], [place], [address] , [facility] 4 09:46:43 Night sweats 73981694 Active 2023 BAKARI Souza [address], [address], [place], [address] , [facility] 4 09:58:56 Vulvovagin itis 88760372 Active 2023 BAKARI Souza [address], [address], [place], [address] , [facility] 4 16:14:19 Increased frequency of urination 651310928 Active 2023 Amanda Arana RN null, [facility] 4 10:30:59 Insomnia 038118820 Active 2023 BAKARI Souza [address], [address], [place], [address] , [facility] 4 14:51:25 Anxiety 65026834 Active 2023 BAKARI Souza [address], [address], [place], [address] , [facility] 4 14:40:07 Pain in right hand 1054838693065 09 Active 2024 Amanda Arana RN null, [facility] 5 09:21:49 Extremely dense breast compositio n 483103303 Active 2024 Amanda Arana RN null, [facility] 5 12:29:25 Screening for malignant neoplasm of colon Active 2024 BAKARI Souza [address], [address], [place], [address] , [facility] 5 16:51:48 Menopausal symptom 52890169 Active 2024 BAKARI Souza [address], [address], [place], [address] , [facility] [employer] [facility] 5 16:54:56 Anemia 046733423 Active 2024 BAKARI Souza [address], [address], [place], [address] , [facility] [employer] [facility] 5 17:00:54 Dysuria 17288274 Active 2024 BAKARI Souza [address], [address], [place], [address] , [facility] [employer] [facility] 5 15:51:09 Notes:[place] en y gastric bypa ss ...in 2021 Problem Notes None recorded. Procedures Surgical History Date Name Laterality Status Provider Name and Address Organization Details Recorded Time 07/27/19 screening mammography completed Amanda Arana RN [facility] 07/28/2024 12:12:04 Gastric Bypass completed Not Available [facility] 08/06/2022 00:49:03 Imaging Results Imaging Date Name Status LastModified by Organiz ation Details LastModified Time 05/13/2022 MAMMO, screening, bilateral completed [id number] [facility] [address] [place], [address], 08/06/2022 01:03:01 06/23/2022 PET-CT, skull base to mid-thigh scan completed [id number] Information not available 08/06/2022 01:03:01 02/04/2023 nerve conduction study/EMG (PROC) completed [address], [address], 02/04/2023 17:05:13 02/05/2023 XR, cervical spine, 2 or 3 view completed [address], [address], 02/05/2023 14:09:28 07/14/2024 XR, hand, 3 or more view completed [address], [address], 07/18/2024 10:27:00 07/27/2024 MAMMO, screening, digital, bilateral active [address], [address], 09/01/2024 13:09:41 Procedure Notes None recorded. Medical Equipment None Reported. Allergies No known drug allergies Medications Name Sig Start Date Stop Date Status Note LastModified by Organization Details LastModified Time cyclobenzap rine 10 mg tablet TAKE 1 TABLET BY MOUTH EVERY DAY AT BEDTIME 08/02 completed Not Available Not Available Not Available metformin 500 mg tablet 11/27 completed Not Available Not Available Not Available neomycin-po lymyxin-hyd rocort 3.5 mg/mL-10,00 0 unit/mL-1 % ear solution active Not Available Not Available Not Available trazodone 50 mg tablet Take 1 tablet every day by oral route at bedtime for 30 days, for sleep. 08/02 completed Not Available Not Available Not Available lisinopril 20 mg-hydrochl orothiazide 12.5 mg [...] active Not Available Not Available Not Available phenazopyri dine 200 mg tablet TAKE 1 TABLET BY MOUTH THREE TIMES A DAY FOR 2 DAYS active Not Available Not Available No t Available metronidazo le 0.75 % (37.5 mg/5 gram) vaginal gel INSERT 1 APPLICATO RFUL VAGINALLY AT BEDTIME FOR 5 NIGHTS 08/02 completed Not Available Not Available Not Available ondansetron HCl 4 mg tablet 12/13 completed Not Available Not Available Not Available prednisone 20 mg tablet 2 tabs po twice daily for 2 days ,1 tab twice daily for 5 days; 0.5tab twice daily for 2 days ,0.5 tab for 1 day . TAKE 2ND DOSE EVERY DAY AT NOON . A 10 DAY COURSE 08/02 completed Not Available Not Available Not Available sulfamethox azole 800 mg-trimetho prim 160 [...] active Not Available Not Available Not Available oxycodone-a cetaminophe n 5 mg-325 mg tablet TAKE 1 TABLET BY MOUTH EVERY 6 HOURS NEEDED FOR PAIN 08/02 completed Not Available Not Available Not Available magnesium [...] TOPICALLY TO EXTERNAL VULVAR AREA TWICE DAILY 08/02 completed Not Available Not Available Not Available Synthroid 50 mcg tablet TAKE 1 TABLET BY MOUTH EVERY WEEK IN THE MORNING active Not Available Not Available No t [...] as needed for 10 days, for anxiety. 08/02 completed Not Available Not Available Not Available ondansetron 4 mg disintegrat ing tablet DISSOLVE 1 TABLET ON THE TONGUE EVERY 6 HOURS 08/02 completed Not Available Not Available Not Available Calcitrate 200 mg (950 mg) tablet [...] Available Not Available Not Available amoxicillin 875 mg-willianu m clavulanate 125 mg tablet TAKE 1 [...] Date Recorded Body mass index (BMI) Body height Oxygen saturation Oxygen saturation in Arterial blood by Pulse oximetry Heart rate Body temperature Body weight Systolic blood pressure Diastolic blood pressure Provider Name and Address Organization Details Last Updated DateTime 2 29.8 kg/m2 157.48 cm 98 % 98 % 67 /min 96.8 [degF] 86462.5 6 g 124 mm[Hg] 80 mm[Hg] Not Available [facility] 3 00:50:04 Date Recorded Body height Body mass index (BMI) Body weight Body temperature Heart rate Oxygen saturation Oxygen saturation in Arterial blood by Pulse oximetry Systolic blood pressure Diastolic blood pressure Provider Name and Address Organization Details Last Updated DateTime 3 157.48 cm 23.8 kg/m2 34096.0 1 g 97.7 [degF] 64 /min 99 % 99 % 100 mm[Hg] 64 mm[Hg] SHALINI Torres [facility] 3 11:57:00 Date Recorded Body height Body mass index (BMI) Body weight Body temperature Heart rate Oxygen saturation Oxygen saturation in Arterial blood by Pulse oximetry Systolic blood pressure Diastolic blood pressure Provider Name and Address Organization Details Last Updated DateTime 3 157.48 cm 24.9 kg/m2 41281.5 6 g 98.1 [degF] 72 /min 98 % 98 % 108 mm[Hg] 62 mm[Hg] Sridevi vora CMA [facility] [employer] 3 16:10:37 Date Recorded Body height Provider Name an d Address Organization Details Last Updated DateTime 10/15/2023 157.48 cm Amanda Arana RN [facility] 10/15/2023 10:30:21 Date Recorded Body height Body mass index (BMI) Body weight Body temperature Heart rate Oxygen saturation Oxygen saturation in Arterial blood by Pulse oximetry Systolic blood pressure Diastolic blood pressure Provider Name and Address Organization Details Last Updated DateTime 5 157.48 cm 25.8 kg/m2 78070.8 1 g 98.2 [degF] 84 /min 98 % 98 % 104 mm[Hg] 80 mm[Hg] Amanda Arana RN [facility] [employer] 5 16:47:37 Social History Question Answer Notes LastModified by Organizat ion Details LastModified Time Tobacco Smoking Status Former Smoker Not Available [facility] 08/06/2022 00:46:18 What Is Your Level Of Alcohol Consumption? None [id number] Information not available 08/06/2022 In The 14 Days Before Symptom Onset, Have You Had Close Contact With A Laboratory-confirm ed COVID-19 While That Case Was Ill? No [id number] Information not available 08/06/2022 In The 14 Days Before Symptom Onset, Have You Had Close Contact With A Person Who Is Under Investigation For COVID-19 While That Person Was Ill? No [id number] Information not available 08/06/2022 How Much Tobacco Do You Smoke? 0.5 PPD [id number] Information not available 08/06/2022 How Many Years Have You Smoked Tobacco? 2 [id number] Information not available 08/06/2022 Sex: Unknown Functional Status None recorded. Mental Status None recorded. Family History Relationship Description Onset Age of this Age Resolved Age Notes LastModified by Organization Details LastModified Time Mother Family history of malignant neoplasm [id number] Not available 08/06/2022 00:49:04 Mother Non-Hodgkin' s lymphoma (clinical) MIGRATION.577 [id number] Not available 08/06/2022 00:49:04 Sister Hypertensive disorder MIGRATION.523 [id number] Not available 08/06/2022 00:49:04 Maternal Aunt Hypertensive disorder [id number] [id number] Not available 08/06/2022 00:49:05 Maternal Aunt Diabetes mellitus MIGRATION.615 [id number] Not available 08/06/2022 00:49:05 Maternal Uncle Hypertensive disorder [id number] [id number] Not available 08/06/2022 00:49:05 Maternal Uncle Heart disease MIGRATION.603 [id number] Not available 08/06/2022 00:49:05 Maternal Grandmother Diabetes mellitus MIGRATION.408 [id number] Not available 08/06/2022 00:49:05 Medical History No medical history recorded. Gynecological HistoryNo gynecological history recorded. Obstetrics History GPAL:G 0 P 0 0 0 0 Past Encounters Encounter ID Performer Location Encounter Start Date Encounter Closed Date Diagnosis/Indication Diagnosis SNOMED-CT Code Diagnosis ICD10 Code Diagnosis Note [id number] [facility] [place] [address] 08/13/2020 00:00:00 08/13/2020 20:32:26 [id number] [facility] [place] [address] 12/11/2020 00:00:00 12/11/2020 09:56:47 [id number] [facility] [place] [address] 02/14/2021 00:00:00 02/14/2021 20:54:13 [id number] [facility] [place] [address] [place] [address] [place] [address] 12/13/2021 00:00:00 12/13/2021 18:18:44 [id number] Malia Tejeda MD [facility] [place] [address] [place] [address] [place] [address] 12/15/2022 11:49:17 12/15/2022 12:39:59 Adult health examination 909107541 Z00.00 Eruption 939655341 R21 [id number] Malia Tejeda MD [facility] [place] [address] [place] [address] y [place] [address] 02/05/2023 16:02:09 02/06/2023 08:49:47 Thoracic back pain 352040092 M54.6 Biofreeze. Heat and NSAIDs prn Carpal yanira luis manuel syndrome 69150339 G56.03 Use cock up splints at bed time [id number] BAKARI Souza [facility] [place] [address] [place] [address] y [place] [address] 10/15/2023 10:15:57 11/09/2023 10:50:57 Increased frequency of urination 652605109 R35.0 [id number] BAKARI Souza [address] [address] 08/02/2024 16:41:59 08/02/2024 17:19:44 Goiter 1579028 E04.9 Hyperlipidemia 51727781 E78.5 Vitamin D deficiency 347 43164 E55.9 Menopausal symptom 71772 002 N95.1 Anemia 736434634 D64.9 Anxiety 41600184 F41.9 Carpal yanira luis manuel syndrome 47423800 G56.03 Cervical radiculopathy 16269675 M54.12 Hypothyroidism 12917020 E03.9 Insomnia 156780962 G47.0 0 Neuropathy 039590211 G62 .9 Sleep disorder 72550069 G47.9 Health Concerns Section Related Observation LastModified by Organization Detai ls LastModified Time None Recorded Concern Status LastModified by Organization Details LastModified Time None Recorded Advance Directives Directive None Recorded Payers Encounter Date Sequence Insurance Name Policy Number Policy Conroy Covered Member ID Conroy Member ID Guarantor Name 12/15/2022 1 [facility] [id number] Nedra Banks [id number] Nedra Banks 02/05/2023 1 [facility] [employer] [id number] Nedra Banks [id number] Nedra Banks 10/15/2023 1 [facility] CHO[employer] [id number] Nedra Banks [id number] Nedra Banks 08/02/2024 1 [employer] ([employer]O) [id number] Nedra Banks [id number] Nedra Banks 08/02/2024 2 [place] [facility] Nedra Banks [id number] Nedra Banks Notes Date Note Type Note [...] ago. All was ok. Malia Tejeda MD [address], [address] [address], [place], [address], [facility] 12/15/2022 18:41:06 02/05/2023 text/html Here today c/o upper back pain. From shoulder blades up has tingling and numbness that is constant. Using Biofreeze. Has numbness across back. She had NCS done yesterday and showed mild CTS. Pt had xray of cervical spine and this was negative. Malia Tejeda MD [address], [address], [place], [address], [facility] 02/05/2023 21:13:07 08/02/2024 text/html Had a colonosocp y at [facility] . BAKARI Souza [address] [facility], [facility] [address], [place], [address], [facility] [employer] 08/08/2024 20:12:27 OBGyn Episode No OBEpisode recorded.
[2024-09-03 08:30] LABS: Basophils Percent Auto 0.7 % (0.2-1.2); Eosinophils Absolute Auto 0.1 K/mm3 (0-0.3); Eosinophils Percent Auto 1.2 % (0-4.4); Hematocrit 39.1 % (37.0-47.0); Immature Granulocyte Absolute 0.01 K/mm3 (0.00-0.031); Immature Granulocyte Percent A 0.2 % (0-0.5); Lymphocytes Absolute Auto 1.56 K/mm3 (0.9-3.2); Lymphocytes Percent Auto 38.5 % (18.3-44.2); Mean Corpuscular HGB Conc 33.2 g/dl (32-36); Mean Corpuscular Volume 93.1 fl (80-100); Mean Platelet Volume 9.5 fl (7.4-10.4); Monocytes Absolute Auto 0.3 K/mm3 (0.1-0.6); Monocytes Percent Auto 7.9 % (2.6-8.5); Neutrophils Absolute Auto 2.1 K/mm3 (1.3-6.7); Neutrophils Percent Auto 51.5 % (45.5-73.1); Platelet Count Result 260 k/mm3 (150-375); Red Cell Distribution Width 13.2 % (11.5-14.5); White Blood Count 4.1 K/mm3 (4.5-10.0)
[2024-09-03 08:40] LABS: Alanine Aminotransferase 91 U/L (6-35); Albumin Level 3.8 g/dL (3.5-5.1); Alkaline Phosphatase 61 U/L (38-126); Anion Gap 6 mmol/L (4-12); Aspartate Amino Transferase 47 U/L (14-36); Bilirubin,Total 0.6 mg/dL (0.2-1.3); Blood Urea Nitrogen 18 mg/dL (7-17); Calcium 8.6 mg/dL (8.4-10.2); Carbon Dioxide 30 mmol/L (22-30); Chloride 103 mmol/L (98-107); Cholesterol 155 mg/dL (0-200); Creatine Kinase 109 U/L (30-135); Estimated Glomerular Filt Rate > 60; Glucose 86 mg/dL (65-110); HDL Direct 76 mg/dL; Magnesium 2.2 mg/dL (1.6-2.3); Potassium 3.9 mmol/L (3.4-5.0); Sodium 139 mmol/L (137-145); Triglycerides 53 mg/dL (<150)
[2024-09-03 08:52] LABS: LDL Cholesterol Direct 58 mg/dL
[2024-09-03 09:20] LABS: Vitamin D 25 Hydroxy 65.1 ng/mL
[2024-09-03 09:37] LABS: Iron 113 ug/dL (37-170)
[2024-09-03 09:46] LABS: Percent Iron Saturation 38 % (20-50)
[2024-09-03 09:48] LABS: Folic Acid > 20.0 ng/mL (2.76->20); Vitamin B12 > 1000.0 pg/mL (239-931)
[2024-09-03 23:19] LABS: Progesterone 0.5 ng/mL
[2024-09-06 02:38] LABS: LH 37.2 mIU/mL
[2024-09-08 01:45] LABS: Testosterone Total 14 ng/dL (2-45)
== END 2024-09-03 07:21 | disposition home or self-care (01) ==
LOC: ANHLAB 07:24
PROVIDERS: PCP Physician Assistant; Visit Provider Physician Assistant
DX: D64.9 Anemia, unspecified (principal); E55.9 Vitamin D deficiency, unspecified; E78.5 Hyperlipidemia, unspecified; N95.1 Menopausal and female climacteric states; Z91.89 Other specified personal risk factors, not elsewhere classified
CPT/HCPCS: 36415; 80053; 80061; 82306; 82550; 82607; 82670; 82728; 82746; 83001; 83002; 83540; 83550; 83735; 84144; 84403; 85025